=== PATIENT | male | born 1970 | race Two or more races ===

== ENCOUNTER 2020-03-05 19:53 | Inpatient (IN) | payer MEDICAID ==
[~2020-03-05] VITALS: Ht 175.3 cm; Wt 99.8 kg
[2020-03-05 20:00] VITALS: BP 124/73
[2020-03-05] MEDS ORDERED: Azithromycin 500 MG in NS 275 ML IVPB ONE (20:30)
[2020-03-05] MEDS ORDERED: Acetaminophen 500mg (ES) tab ORAL ONE (20:30)
[2020-03-05] MEDS ORDERED: cefTRIAXone 1 GM in NS 55 ML IV ONE (20:30)
[2020-03-05] MEDS ORDERED: dexAMETHasone 10mg/ml Inj IV ONE (20:30)
--- NOTE | 2020-03-05 20:36 | Emergency Room Report ---
History of Present Illness General Chief Complaint: Upper Respiratory Illness Source: Patient, EMS Present Illness HPI Patient presents via EMS. He has been sick for 8 days. Shortness of breath is gotten worse over the last 24-48 hrs. He also feels weakness and body pain. He denies any vomiting or diarrhea. He has had intermittent fevers that he has taken [id number]-[id number] medication. He has difficulty rating body pain at this time but he does report chest pain and muscle aches. Patient states has not eaten for 3 days. Initial oxygen saturation was 86% on room air. On 3 L he is satting at 94% at this time. He still feels short of breath and is coughing. Patient has a history of diabetes and hypertension but has not been taking medication for over a year. No chills, sore throat, chest pain, palpitations, nausea, dysuria, abdominal pain, rashes, depression, anxiety, visual changes, dizziness, headache. 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 Reviewed Nursing Documentation: PMH: Agreed; PSxH: Agreed Nursing Documentation-PMH Hx Hypertension: Yes Hx Diabetes: Yes Review of Systems All Other Systems: negative except mentioned in HPI Physical Exam Vital Signs Date Time Temp Pulse Resp B/P (MAP) Pulse Ox O2 Delivery O2 Flow Rate FiO2 03/05/20 19:52 98.8 103 22 139/73 (95) 94 Nasal Cannula 4.0 Sp02 EP Interpretation: reviewed, abnormal - Interpreted as low by me General Appearance: mild distress Head: normocephalic Eyes: bilateral eye normal inspection, bilateral eye PERRL, bilateral eye EOMI ENT: normal pharynx, moist mucus membranes, other - Wearing a mask Neck: supple Respiratory: respiratory distress - Mild, crackles, rales Cardiovascular #1: no edema, tachycardia Cardiovascular #2: 2+ radial (R) Gastrointestinal: non tender, soft, overweight Genitourinary: no CVA tenderness Musculoskeletal: no calf tenderness Neurologic: alert, oriented x3, grossly normal Psychiatric: mood/affect normal Skin: no rash, warm/dry Medical Decision Making Diagnostic Impression: Primary Impression: Pneumonia due to COVID-19 virus Additional Impressions: Hyperglycemia Hypoxia ER Course Patient presents with hypoxia and cough. Differential includes COVID-19 pneumonia, pulmonary embolus, acute myocardial infarction, other types of pneumonia most others. Patient evaluated EKG, chest x-ray and labs. Rapid Covid test is sent. Patient is treated with IV hydration, Tylenol, dexamethasone, azithromycin and Rocephin. EKG sinus rhythm rate of 98. No injury. Chest x-ray with bilateral infiltrates . Labs with low white count normal hematocrit. CMP remarkable for glucose of 234. Elevated inflammatory markers. Patient still tachypneic but improved on oxygen. Patient needing admission to the hospital for continued oxygen and treatment. D-dimer minimally elevated. Lovenox ordered however the patient was already on the floor. Laboratory Tests Test 03/05/20 19:45 03/05/20 21:15 White Blood Count 5.1 K/UL (4.8-10.8) Red Blood Count 5.19 M/UL (4.70-6.10) Hemoglobin 15.2 G/DL (14.2-18.0) Hematocrit 42.8 % (42.0-52.0) Mean Corpuscular Volume 82 FL (80-99) Mean Corpuscular Hemoglobin 29.3 PG (27.0-31.0) Mean Corpuscular Hemoglobin Concent 35.5 G/DL (32.0-36.0) Red Cell Distribution Width 12.6 % (11.6-14.8) Platelet Count 266 K/UL (150-450) Mean Platelet Volume 7.7 FL (6.5-10.1) Neutrophils (%) (Auto) 66.6 % (45.0-75.0) Lymphocytes (%) (Auto) 28.1 % (20.0-45.0) Monocytes (%) (Auto) 4.9 % (1.0-10.0) Eosinophils (%) (Auto) 0.0 % (0.0-3.0) Basophils (%) (Auto) 0.4 % (0.0-2.0) Prothrombin Time 11.7 SEC (9.30-11.50) H Prothrombin Time INR 1.1 (0.9-1.1) Activated Partial Thromboplast Time 34 SEC (23-33) H D-Dimer 0.86 mg/L FEU (0.00-0.49) H Sodium Level 132 MMOL/L (136-145) L Potassium Level 4.3 MMOL/L (3.5-5.1) Chloride Level 97 MMOL/L (98-107) L Carbon Dioxide Level 29 MMOL/L (21-32) Anion Gap 6 mmol/L (5-15) Blood Urea Nitrogen 9 mg/dL (7-18) Creatinine 0.7 MG/DL (0.55-1.30) Estimated Glomerular Filtration Rate > 60 mL/min (>60) Glucose Level 234 MG/DL (74-106) H Lactic Acid Level 1.70 mmol/L (0.4-2.0) Calcium Level 8.4 MG/DL (8.5-10.1) L Ferritin 961 NG/ML (8-388) H Total Bilirubin 0.6 MG/DL (0.2-1.0) Aspartate Amino Transferase (AST) 30 U/L (15-37) Alanine Aminotransferase (ALT) 30 U/L (12-78) Alkaline Phosphatase 109 U/L (46-116) Lactate Dehydrogenase 365 U/L (81-234) H Total Creatine Kinase 39 U/L (26-308) Troponin I 0.000 ng/mL (0.000-0.056) C-Reactive Protein, Quantitative 17.3 mg/dL (0.00-0.90) H Pro-B-Type Natriuretic Peptide 135 pg/mL (0-125) H Total Protein 7.5 G/DL (6.4-8.2) Albumin 2.5 G/DL (3.4-5.0) L Globulin 5.0 g/dL Albumin/Globulin Ratio 0.5 (1.0-2.7) L Lipase 103 U/L (73-393) Urine Color Pale yellow Urine Appearance Clear Urine pH 7 (4.5-8.0) Urine Specific [place] 1.010 (1.005-1.035) Urine Protein 3+ (NEGATIVE) H Urine Glucose (UA) 4+ (NEGATIVE) H Urine Ketones 4+ (NEGATIVE) H Urine Blood Negative (NEGATIVE) Urine Nitrite Negative (NEGATIVE) Urine Bilirubin Negative (NEGATIVE) Urine Urobilinogen 1 MG/DL (0.0-1.0) H Urine Leukocyte Esterase Negative (NEGATIVE) Urine RBC 0-2 /HPF (0 - 0) H Urine WBC 0-2 /HPF (0 - 0) Urine Squamous Epithelial Cells Occasional /LPF Urine Bacteria Few /HPF (NONE) Microbiology Date/Time Source Procedure Growth Status 03/05/20 20:05 Nasopharynx SARS-CoV-2 RdRp Gene Assay - Final Complete EKG Diagnostic Results Rate: tachycardiac Rhythm: NSR ST Segments: no acute changes Rhythm Strip Diag. Results Rhythm: no PVC's, no ectopy, other - Sinus tachycardia Chest X-Ray Diagnostic Results Chest X-Ray Diagnostic Results : Chest X-Ray Ordered: Yes # of Views/Limited/Complete: 1 View Indication: Other EP Interpretation: Yes Interpretation: no effusion, no pneumothorax, other - Bilateral infiltrates Impression: Other Electronically Signed by: Electronically signed by Pelon Watt MD Last Vital Signs Date Time Temp Pulse Resp B/P (MAP) Pulse Ox O2 Delivery O2 Flow Rate FiO2 03/06/20 00:00 97.9 90 20 120/82 (95) 93 03/05/20 23:20 Nasal Cannula 3.0 Status: improved Disposition: ADMITTED INPATIENT Condition: Serious Scripts No Active Prescriptions or Reported Meds Pelon Watt MD Mar 05, 2020 20:36
--- NOTE | 2020-03-05 20:44 | Diagnostic Imaging Report ---
EXAM: XR Chest, 1 View CLINICAL HISTORY: DYSPNEA TECHNIQUE: Frontal view of the chest. COMPARISON: No relevant prior studies available. FINDINGS: Lungs: Moderate amount of patchy airspace opacities in both lungs with lower lung zone predominance. Pleural space: Unremarkable. No pneumothorax. Heart: Unremarkable. No cardiomegaly. Mediastinum: Unremarkable. Bones/joints: Unremarkable. IMPRESSION: Bilateral Pneumonia.
[2020-03-05 20:47] LABS: BASOPHILS % (AUTO) 0.4 % (0.0-2.0); HEMATOCRIT 42.8 % (42.0-52.0); HEMOGLOBIN 15.2 G/DL (14.2-18.0); LYMPHOCYTES % (AUTO) 28.1 % (20.0-45.0); MEAN CORPUSCULAR VOLUME 82 FL (80-99); MONOCYTES % (AUTO) 4.9 % (1.0-10.0); NEUTROPHILS % (AUTO) 66.6 % (45.0-75.0); PLATELET COUNT 266 K/UL (150-450); RED BLOOD COUNT 5.19 M/UL (4.70-6.10); RED CELL DISTRIBUTION WIDTH 12.6 % (11.6-14.8); WHITE BLOOD COUNT 5.1 K/UL (4.8-10.8)
[2020-03-05 20:52] LABS: ANION GAP 6 mmol/L (5-15); BLOOD UREA NITROGEN 9 mg/dL (7-18); CALCIUM 8.4 MG/DL (8.5-10.1); CARBON DIOXIDE 29 MMOL/L (21-32); CHLORIDE 97 MMOL/L (98-107); CREATININE 0.7 MG/DL (0.55-1.30); POTASSIUM 4.3 MMOL/L (3.5-5.1); SODIUM 132 MMOL/L (136-145)
[2020-03-05 21:08] LABS: INR 1.1 (0.9-1.1)
[2020-03-05 21:09] LABS: ALANINE AMINOTRANSFERASE 30 U/L (12-78); ALBUMIN 2.5 G/DL (3.4-5.0); ALBUMIN/GLOBULIN RATIO 0.5 (1.0-2.7); ALKALINE PHOSPHATASE 109 U/L (46-116); ASPARTATE AMINO TRANSFERASE 30 U/L (15-37); BILIRUBIN,TOTAL 0.6 MG/DL (0.2-1.0); CREATINE KINASE 39 U/L (26-308); FERRITIN 961 NG/ML (8-388); LACTATE DEHYDROGENASE 365 U/L (81-234)
[2020-03-05 21:34] LABS: APPEARANCE,URINE CLEAR; BILIRUBIN, URINE NEGATIVE (NEGATIVE); COLOR,URINE PALE YELLOW; GLUCOSE, URINE (UA) 4+ (NEGATIVE); KETONES,URINE 4+ (NEGATIVE); LEUKOCYTE ESTERASE ,URINE NEGATIVE (NEGATIVE); NITRITE,URINE NEGATIVE (NEGATIVE); PH,URINE 7 (4.5-8.0); PROTEIN,URINE 3+ (NEGATIVE); UROBILINOGEN,URINE 1 MG/DL (0.0-1.0)
[2020-03-05 21:47] VITALS: BP 125/70
[2020-03-05] MEDS ORDERED: guaiFENesin w/Codeine 5ml Liq ud ORAL PRN (22:45)
[2020-03-05] MEDS ORDERED: Enoxaparin 100mg Inj SUBQ STA (23:31)
[2020-03-06] VITALS: BP 120/82
[2020-03-06] MEDS ORDERED: Acetaminophen 500mg (ES) tab ORAL PRN
[2020-03-06] MEDS ORDERED: guaiFENesin /DM 10ml syrup ORAL PRN
[2020-03-06 04:00] VITALS: BP 116/79
[2020-03-06 08:00] VITALS: BP 115/77
[2020-03-06 09:02] LABS: BASOPHILS % (AUTO) 0.1 % (0.0-2.0); HEMATOCRIT 39.9 % (42.0-52.0); HEMOGLOBIN 13.9 G/DL (14.2-18.0); LYMPHOCYTES % (AUTO) 20.3 % (20.0-45.0); MEAN CORPUSCULAR VOLUME 85 FL (80-99); MONOCYTES % (AUTO) 4.2 % (1.0-10.0); NEUTROPHILS % (AUTO) 75.5 % (45.0-75.0); PLATELET COUNT 280 K/UL (150-450); RED BLOOD COUNT 4.67 M/UL (4.70-6.10); WHITE BLOOD COUNT 3.5 K/UL (4.8-10.8)
[2020-03-06 09:17] LABS: ALANINE AMINOTRANSFERASE 28 U/L (12-78); ALBUMIN 2.2 G/DL (3.4-5.0); ALBUMIN/GLOBULIN RATIO 0.5 (1.0-2.7); ALKALINE PHOSPHATASE 99 U/L (46-116); ANION GAP 10 mmol/L (5-15); ASPARTATE AMINO TRANSFERASE 30 U/L (15-37); BILIRUBIN,TOTAL 0.6 MG/DL (0.2-1.0); BLOOD UREA NITROGEN 14 mg/dL (7-18); CALCIUM 8.1 MG/DL (8.5-10.1); CARBON DIOXIDE 24 MMOL/L (21-32); CHLORIDE 100 MMOL/L (98-107); CREATININE 0.6 MG/DL (0.55-1.30); POTASSIUM 4.5 MMOL/L (3.5-5.1); SODIUM 134 MMOL/L (136-145)
[2020-03-06 12:00] VITALS: BP 117/76
[2020-03-06] MEDS ORDERED: Enoxaparin 100mg Inj SUBQ SCH (14:30)
[2020-03-06] MEDS ORDERED: Varibar Honey 250ml MC PRN (14:45)
[2020-03-06] MEDS ORDERED: Varibar Thin Liquid powder 148gm MC PRN (14:45)
[2020-03-06] MEDS ORDERED: Varibar Pudding 230ml MC PRN (14:45)
[2020-03-06] MEDS ORDERED: Varibar Nectar 240ml MC PRN (14:45)
[2020-03-06 16:00] VITALS: BP 111/74
[2020-03-06] MEDS: NovoLOG Insulin Flexpen SUBQ SCH ×2 (17:11→22:22)
--- NOTE | 2020-03-06 19:00 | Consultation ---
DATE OF CONSULTATION: 03/06/2020 PULMONARY CONSULTATION HISTORY OF PRESENT ILLNESS: This is a 49-year-old male who presents to the emergency room yesterday with complaints of shortness of breath. He has been sick for approximately 8 days, but has worsened over the last 48 hours. He reported myalgias and body aches. He also reported fevers. The patient reports he has been anorexic for the last several days. The patient was seen and evaluated. He was hypoxic and started on nasal oxygen. He underwent rapid testing for COVID-19. Results were positive. He also underwent imaging studies, which showed patchy bilateral infiltrates. PAST HISTORY: The patient is an hypertensive and is also known to be diabetic. SOCIAL HISTORY: Denies alcohol, tobacco usage. He lives at home with family. 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 No substance use reported. ALLERGIES: None reported. SURGERIES: None. REVIEW OF SYSTEMS: At this time denies any headaches, hematemesis, melena, hematochezia, or weight loss. PHYSICAL EXAMINATION: GENERAL: A 49-year-old male. HEENT: Unremarkable. LUNGS: Clear breath sounds bilaterally. HEART: Normal heart sounds. ABDOMEN: Soft. EXTREMITIES: There is no edema. NEUROLOGIC: Nonfocal. VITAL SIGNS: Blood pressure 116/70, heart rate 74, respirations 18, O2 sat 93% on 2 L oxygen. LABORATORY TESTING: Shows hemoglobin of 13.9. Chemistries are normal. Coags, D-dimer of 0.86. Urinalysis negative. Infectious disease/microbiology testing discussed above. X-ray chest discussed above. IMPRESSION: 1. COVID-19 pneumonia. 2. Diabetes mellitus. 3. Hypertension. 4. Hypoxemia. DISCUSSION: Admit to the hospital. The patient will be started on Decadron. Defer the use of remdesivir to ID specialist. Continue glucose monitoring. We will initiate Lovenox. We will follow carefully. Irineo Sharp M.D. DR: CARSON JOB#: [id number] CC:
--- NOTE | 2020-03-06 19:45 | Consultation ---
DATE OF CONSULTATION: 03/06/2020 INFECTIOUS DISEASE CONSULTATION CONSULTING PHYSICIAN: Kev Bailon M.D. PRIMARY ATTENDING PHYSICIAN: Jagjit Arauz M.D. REASON FOR CONSULT: COVID-19 disease. HISTORY OF PRESENT ILLNESS: This 49-year-old male, admitted yesterday from home complaining of weakness for 8 days, worse in the last 24 to 48 hours, decrease in oral intake in the last 3 days, was found to have decrease in O2 saturation, was found to have COVID-19 positive. PAST MEDICAL HISTORY: Diabetes and hypertension, but the patient was noncompliant with medication for 1 year. ALLERGIES: No known drug allergies. MEDICATIONS: Getting dexamethasone, insulin, Robitussin DM syrup, Tylenol. Got a dose of ceftriaxone and azithromycin in the ER. SOCIAL HISTORY: . 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 Denies alcohol, drug abuse, or smoking. REVIEW OF SYSTEMS: No fever. May have very slight coughing. PHYSICAL EXAMINATION: VITAL SIGNS: Temperature 98.1, pulse 81, blood pressure is 117/76. GENERAL APPEARANCE: Seems overweight. HEAD AND NECK: [place] conjunctiva. HEART: Normal rate. LUNGS: Clear. ABDOMEN: Soft, nontender. EXTREMITIES: He has no edema. NEUROLOGIC: He is awake, alert, oriented x3. LABORATORY AND DIAGNOSTIC DATA: Sodium 134, potassium 4.5, chloride 100, bicarb 24, BUN 14, creatinine 0.8, glucose elevated. Lactic acid was within normal limit. Albumin is 2.2. WBC 3.5, hemoglobin 13.9, hematocrit 39.9, platelets 180. Chest x-ray showed bilateral pneumonia. COVID test was positive. IMPRESSION: COVID-19 pneumonia. Seems the patient is sick for a while. Has borderline hypoxemia. Oxygen saturation in room air is 90 to 91%. He has diabetes mellitus with hyperglycemia and history of hypertension. RECOMMENDATION: Continue with dexamethasone. We will follow up the clinical course. At the end of my exam, I thank, Dr. Arauz, for involving me in the care of this patient. Kev Bailon M.D. DR: IDALIA JOB#: [id number] CC: SANTO
[2020-03-06 20:00] VITALS: BP 111/74
--- NOTE | 2020-03-06 21:38 | Cardiac Electrophysiology PN ---
Subjective Subjective [id number] Objective Last 24 Hour Vital Signs Date Time Temp Pulse Resp B/P (MAP) Pulse Ox O2 Delivery O2 Flow Rate FiO2 03/06/20 16:00 97.8 79 20 111/74 (86) 94 03/06/20 12:00 98.1 82 20 117/76 (90) 98 03/06/20 09:00 Nasal Cannula 2.0 03/06/20 08:00 97.4 73 20 115/77 (90) 98 03/06/20 04:00 97.4 73 20 116/79 (91) 94 03/06/20 00:52 Nasal Cannula 3.0 03/06/20 00:00 97.9 90 20 120/82 (95) 93 03/05/20 23:20 98.7 92 30 130/83 98 Nasal Cannula 3.0 03/05/20 21:47 97.6 92 26 125/70 99 Nasal Cannula 3.0 Intake and Output 03/05/20 03/06/20 19:00 07:00 Intake Total 1600 ml Balance 1600 ml Intake IV Total 1600 ml # Voids 1 Laboratory Tests Test 03/06/20 04:00 White Blood Count 3.5 K/UL (4.8-10.8) L Red Blood Count 4.67 M/UL (4.70-6.10) L Hemoglobin 13.9 G/DL (14.2-18.0) L Hematocrit 39.9 % (42.0-52.0) L Mean Corpuscular Volume 85 FL (80-99) Mean Corpuscular Hemoglobin 29.8 PG (27.0-31.0) Mean Corpuscular Hemoglobin Concent 34.9 G/DL (32.0-36.0) Red Cell Distribution Width 12.0 % (11.6-14.8) Platelet Count 280 K/UL (150-450) Mean Platelet Volume 6.7 FL (6.5-10.1) Neutrophils (%) (Auto) 75.5 % (45.0-75.0) H Lymphocytes (%) (Auto) 20.3 % (20.0-45.0) Monocytes (%) (Auto) 4.2 % (1.0-10.0) Eosinophils (%) (Auto) 0.0 % (0.0-3.0) Basophils (%) (Auto) 0.1 % (0.0-2.0) Sodium Level 134 MMOL/L (136-145) L Potassium Level 4.5 MMOL/L (3.5-5.1) Chloride Level 100 MMOL/L (98-107) Carbon Dioxide Level 24 MMOL/L (21-32) Anion Gap 10 mmol/L (5-15) Blood Urea Nitrogen 14 mg/dL (7-18) Creatinine 0.6 MG/DL (0.55-1.30) Estimat Glomerular Filtration Rate > 60 mL/min (>60) Glucose Level 271 MG/DL (74-106) H Calcium Level 8.1 MG/DL (8.5-10.1) L Total Bilirubin 0.6 MG/DL (0.2-1.0) Aspartate Amino Transf (AST/SGOT) 30 U/L (15-37) Alanine Aminotransferase (ALT/SGPT) 28 U/L (12-78) Alkaline Phosphatase 99 U/L (46-116) Total Protein 6.9 G/DL (6.4-8.2) Albumin 2.2 G/DL (3.4-5.0) L Globulin 4.7 g/dL Albumin/Globulin Ratio 0.5 (1.0-2.7) L Microbiology Date/Time Source Procedure Growth Status 03/05/20 20:05 Nasopharynx SARS-CoV-2 RdRp Gene Assay - Final Complete Parish Devlin MD Mar 06, 2020 21:38
--- NOTE | 2020-03-07 | Consultation ---
DATE OF CONSULTATION: 03/06/2020 CARDIOLOGY CONSULTATION REFERRING PHYSICIAN: Jagjit Arauz MD REASON FOR CONSULTATION: Shortness of breath and tachycardia. HISTORY OF PRESENT ILLNESS: The patient is a 49-year-old gentleman who was brought to the emergency room for increasing shortness of breath. This got worse in the last 24 to 48 hours and started about 8 days ago. The patient is also feeling weaker with generalized body ache. Also has had intermittent fever [id number]-[id number] medication. The patient apparently has not eating for 3 days. Oxygen saturation was 86% on room air, on 3 liters improved to 94%. The patient also has a history of hypertension, diabetes, but has not been taking medication for over a year. The patient was noted to be COVID positive and admitted and a cardiology consultation was obtained for further evaluation. REVIEW OF SYSTEMS: Negative other than what was mentioned in history of present illness. PAST MEDICAL HISTORY: As mentioned above. FAMILY HISTORY: Noncontributory. SOCIAL HISTORY: He denies smoking or drink alcohol. PHYSICAL EXAMINATION: VITAL SIGNS: Blood pressure 111/74, pulse 79, respirations 18, temperature 97.8. HEAD AND NECK: No JVD. LUNGS: Coarse rhonchi. CARDIOVASCULAR: Regular S1 and S2 with no gallop or murmur. ABDOMEN: Soft. EXTREMITIES: No pitting edema. LABORATORY DATA: Labs showed white count of 3.5, hemoglobin of 14, hematocrit of 40, and platelet count is 280. Sodium 134, potassium 4.5, BUN of 14, creatinine 0.6, and glucose of 271. Troponin is negative. ASSESSMENT AND PLAN: 1. Shortness of breath. First troponin is negative. We will repeat the troponin and get EKG and echocardiogram for further evaluation. This is likely due to the patient's COVID pneumonia. 2. COVID-positive pneumonia. Further evaluation by Pulmonary and ID. Add dexamethasone. 3. Diabetes, on insulin. 4. History of hypertension. We will watch the patient off antihypertensive agents. Blood pressure is currently stable. Thank you very much for allowing me to participate in the care of this patient. Please do not hesitate to contact me for any questions regarding my evaluation. Parish Devlin M.D. DR: FERNANDO JOB#: [id number] CC:
--- NOTE | 2020-03-07 02:00 | History and Physical Report ---
DATE OF ADMISSION: 03/05/2020 HISTORY OF PRESENT ILLNESS: Patient is diabetic and comes in because of shortness of breath and coughing. Feels weak and has body aches. Denies nausea, vomiting, or diarrhea. Has fever, chills, myalgias. Patient has also poor appetite. Patient initially was hypoxic and was admitted for COVID positive pneumonia and feels also very weak. Patient is having abdominal pain. PAST MEDICAL HISTORY: Hypertension, history of diabetes. PAST SURGICAL HISTORY: None. ALLERGIES: No known allergies. FAMILY HISTORY: Does have history of hypertension, diabetes. SOCIAL HISTORY: Denies history of smoking, alcohol, or illicit drugs. REVIEW OF SYSTEMS: HEENT: Denies headaches. RESPIRATORY: Reports shortness of breath and cough. CARDIOVASCULAR: Denies chest pain. GASTROINTESTINAL: Denies nausea, vomiting, or diarrhea. EXTREMITIES: Denies pain. CENTRAL NERVOUS SYSTEM: Feels weak. MEDICATIONS: None. PHYSICAL EXAMINATION: VITAL SIGNS: Temperature is 97.4, pulse 73, blood pressure 116/79. HEENT: PERRLA. NECK: Supple. No lymphadenopathy. CHEST: Bibasilar rhonchi. CARDIOVASCULAR: Regular rate and rhythm. No murmurs or extra sounds. GASTROINTESTINAL: Soft, nontender, nondistended. No organomegaly. EXTREMITIES: No edema. Reflexes are equal in both sides. Moves all four extremities. NEUROLOGIC: Generalized weakness. LABORATORY DATA: WBC of 5.1, hemoglobin 15.2, platelets 266. Sodium 133, potassium 4.3, BUN 9, creatinine 0.7, glucose of 234. ASSESSMENT AND PLAN: COVID positive pneumonia, hypoxia, NIDDM. I have asked Dr. Irineo Sharp, Dr. Kev Bailon, Dr. Devlin, Dr. Orr, and Dr. Pavon to see patient for the management of diabetes as well as for the management of COVID pneumonia as well as to rule out any cardiomyopathy associated with COVID pneumonia as well as for abdominal pain. Dr. Orr is consulted for patient's abdominal pain. Jagjit Arauz M.D. DR: KALINA JOB#: [id number] CC:
[2020-03-07 04:00] VITALS: BP 114/80
[2020-03-07] MEDS: NovoLOG Insulin Flexpen SUBQ SCH ×4 (05:54→20:55)
[2020-03-07 08:00] VITALS: BP 108/69
[2020-03-07] MEDS: metFORMIN 500mg tab ORAL SCH ×2 (09:12→17:04)
[2020-03-07] MEDS: dexAMETHasone 10mg/ml Inj IV SCH (09:12)
[2020-03-07] MEDS: Enoxaparin 100mg Inj SUBQ SCH ×2 (09:14→20:38)
--- NOTE | 2020-03-07 10:02 | Pulmonology Progress Note ---
Subjective Allergies: Coded Allergies: No Known Allergies (Unverified , 03/05/20) Objective Last 24 Hour Vital Signs Date Time Temp Pulse Resp B/P (MAP) Pulse Ox O2 Delivery O2 Flow Rate FiO2 03/07/20 08:00 97.2 70 20 108/69 (82) 90 03/07/20 04:00 97.4 77 19 114/80 (91) 92 03/06/20 21:00 Nasal Cannula 2.0 03/06/20 20:00 97.1 72 19 111/74 (86) 92 03/06/20 16:00 97.8 79 20 111/74 (86) 94 03/06/20 12:00 98.1 82 20 117/76 (90) 98 Intake and Output 03/06/20 03/07/20 19:00 07:00 Output Total 1000 ml 1000 ml Balance -1000 ml -1000 ml Output Urine Total 1000 ml 1000 ml Respiratory: decreased breath sounds Cardiovascular: normal rate Microbiology Date/Time Source Procedure Growth Status 03/05/20 20:05 Nasopharynx SARS-CoV-2 RdRp Gene Assay - Final Complete 03/05/20 19:55 Blood Blood Culture - Preliminary NO GROWTH AFTER 24 HOURS Resulted 03/05/20 19:45 Blood Blood Culture - Preliminary NO GROWTH AFTER 24 HOURS Resulted Laboratory Tests 03/06/20 17:06: POC Whole Blood Glucose 252H 03/06/20 21:55: POC Whole Blood Glucose 266H 03/07/20 05:52: POC Whole Blood Glucose [Pending] Current Medications Medications (Trade) Dose Ordered Sig/Emi Route PRN Reason Start Time Stop Time Status Last Admin Dose Admin Acetaminophen (Tylenol) 500 mg Q6HR PRN ORAL For Pain 03/06/20 00:00 04/05/20 00:00 Barium Sulfate (Varibar Honey) 250 ml NOW PRN MC RAD 03/06/20 14:45 03/09/20 14:39 Barium Sulfate (Varibar Bee [place]) 240 ml NOW PRN MC RAD 03/06/20 14:45 03/09/20 14:39 Barium Sulfate (Varibar Pudding) 230 ml NOW PRN MC RAD 03/06/20 14:45 03/09/20 14:39 Barium Sulfate (Varibar Thin Liquid powder) 148 gm NOW PRN MC RAD 03/06/20 14:45 03/09/20 14:39 Dexamethasone Sodium Phosphate (Decadron 10mg/ ml Inj) 6 mg DAILY IV 03/07/20 09:00 06/05/20 08:59 03/07/20 09:12 Dextrose (Dextrose 50%) 25 ml Q30M PRN IV Hypoglycemia 03/06/20 12:43 06/04/20 12:42 Dextrose (Dextrose 50%) 50 ml Q30M PRN IV Hypoglycemia 03/06/20 12:43 06/04/20 12:42 Enoxaparin Sodium (Lovenox) 100 mg Q12HR SUBQ 03/07/20 09:00 06/05/20 08:59 03/07/20 09:14 Guaifenesin/ Dextromethorphan (Robitussin DM Syrup) 10 ml Q6HR PRN ORAL For Cough 03/06/20 00:00 06/04/20 00:00 Insulin Aspart (NovoLOG) BEFORE MEALS AND HS SUBQ 03/06/20 16:30 06/04/20 16:29 03/07/20 05:54 Metformin HCl (Glucophage) 1,000 mg BID ORAL 03/07/20 09:00 04/06/20 08:59 03/07/20 09:12 Pioglitazone HCl (Actos) 15 mg ACBREAKFAST ORAL 03/07/20 06:30 04/06/20 06:29 03/07/20 05:53 Sodium Chloride 1,000 ml @ 60 mls/hr [id number] IV 03/06/20 00:00 04/05/20 00:00 03/07/20 09:17 Assessment/Plan Assessment/Plan MPRESSION: 1. COVID-19 pneumonia. 2. Diabetes mellitus. 3. Hypertension. 4. Hypoxemia. DISCUSSION: The patient started on Decadron. Defer the use of remdesivir to ID specialist. Continue glucose monitoring. We will initiate Lovenox. O2 2L/ N/C We will follow carefully. Gautam Navarrete NP Mar 07, 2020 10:02
--- NOTE | 2020-03-07 11:27 | General Progress Note ---
Subjective ROS Limited/Unobtainable: No Allergies: Coded Allergies: No Known Allergies (Unverified , 03/05/20) Objective Last 24 Hour Vital Signs Date Time Temp Pulse Resp B/P (MAP) Pulse Ox O2 Delivery O2 Flow Rate FiO2 03/07/20 08:00 97.2 70 20 108/69 (82) 90 03/07/20 04:00 97.4 77 19 114/80 (91) 92 03/06/20 21:00 Nasal Cannula 2.0 03/06/20 20:00 97.1 72 19 111/74 (86) 92 03/06/20 16:00 97.8 79 20 111/74 (86) 94 03/06/20 12:00 98.1 82 20 117/76 (90) 98 Intake and Output 03/06/20 03/07/20 19:00 07:00 Output Total 1000 ml 1000 ml Balance -1000 ml -1000 ml Output Urine Total 1000 ml 1000 ml Laboratory Tests 03/06/20 17:06: POC Whole Blood Glucose 252H 03/06/20 21:55: POC Whole Blood Glucose 266H 03/07/20 05:52: POC Whole Blood Glucose [Pending] 03/07/20 09:30: Hemoglobin A1c 11.9H, Troponin I 0.008 Height (Feet): 5 Height (Inches): 9.00 Weight (Pounds): 220 General Appearance: no apparent distress EENT: normal ENT inspection Neck: supple Cardiovascular: normal rate Respiratory/Chest: decreased breath sounds Abdomen: normal bowel sounds, non tender, soft Extremities: non-tender Assessment/Plan Problem List: (1) Hypoxia ICD Codes: R09.02 - Hypoxemia SNOMED: 006859302 (2) Hyperglycemia ICD Codes: R73.9 - Hyperglycemia, unspecified; J12.89 - Other viral pneumonia SNOMED: 92797142 (3) Pneumonia due to COVID-19 virus ICD Codes: U07.1 - COVID-19; J12.89 - Other viral pneumonia SNOMED: 421261507352819066 (4) Diabetes mellitus ICD Codes: E11.9 - Type 2 diabetes mellitus without complications SNOMED: 33561306 (5) Abdominal pain ICD Codes: R10.9 - Unspecified abdominal pain SNOMED: 62084797 Assessment/Plan: covid care given above hold ppi add famotidine repeat labs Mariusz Mendez MD Mar 07, 2020 11:27
[2020-03-07 12:00] VITALS: BP 114/72
[2020-03-07 16:00] VITALS: BP 125/73
[2020-03-07 20:00] VITALS: BP 116/84
--- NOTE | 2020-03-07 22:19 | General Progress Note ---
Subjective ROS Limited/Unobtainable: Yes Allergies: Coded Allergies: No Known Allergies (Unverified , 03/05/20) Objective Last 24 Hour Vital Signs Date Time Temp Pulse Resp B/P (MAP) Pulse Ox O2 Delivery O2 Flow Rate FiO2 03/07/20 16:00 97.5 68 20 125/73 (90) 94 03/07/20 12:00 97.0 72 20 114/72 (86) 94 03/07/20 09:00 Nasal Cannula 4.0 03/07/20 08:00 97.2 70 20 108/69 (82) 90 03/07/20 04:00 97.4 77 19 114/80 (91) 92 Intake and Output 03/06/20 03/07/20 19:00 07:00 Output Total 1000 ml 1000 ml Balance -1000 ml -1000 ml Output Urine Total 1000 ml 1000 ml Laboratory Tests 03/07/20 05:52: POC Whole Blood Glucose [Pending] 03/07/20 09:30: Hemoglobin A1c 11.9H, Troponin I 0.008 03/07/20 11:37: POC Whole Blood Glucose [Pending] 03/07/20 16:25: POC Whole Blood Glucose 312H 03/07/20 20:46: POC Whole Blood Glucose 267H Height (Feet): 5 Height (Inches): 9.00 Weight (Pounds): 220 Assessment/Plan Problem List: (1) Hypoxia ICD Codes: R09.02 - Hypoxemia SNOMED: 248454353 (2) Hyperglycemia ICD Codes: R73.9 - Hyperglycemia, unspecified; J12.89 - Other viral pneumonia SNOMED: 16263110 (3) Pneumonia due to COVID-19 virus ICD Codes: U07.1 - COVID-19; J12.89 - Other viral pneumonia SNOMED: 098217331304286806 (4) Diabetes mellitus ICD Codes: E11.9 - Type 2 diabetes mellitus without complications SNOMED: 47299946 (5) Abdominal pain ICD Codes: R10.9 - Unspecified abdominal pain SNOMED: 14629538 Status: progressing Assessment/Plan: afebrile dm pna resp insuff labile sugar covid positive Jagjit Arauz MD Mar 07, 2020 22:19
[2020-03-08] VITALS: BP 122/87
[2020-03-08 04:00] VITALS: BP 124/83
[2020-03-08] MEDS: NovoLOG Insulin Flexpen SUBQ SCH ×4 (05:40→20:54)
[2020-03-08 08:00] VITALS: BP 126/80
[2020-03-08] MEDS: dexAMETHasone 10mg/ml Inj IV SCH (08:39)
[2020-03-08] MEDS: metFORMIN 500mg tab ORAL SCH ×2 (08:39→17:15)
[2020-03-08] MEDS: Enoxaparin 100mg Inj SUBQ SCH ×2 (08:40→20:55)
--- NOTE | 2020-03-08 09:17 | Pulmonology Progress Note ---
Subjective ROS Limited/Unobtainable: Yes Interval Events: none major reported per nursing Constitutional: Reports: no symptoms; Denies: fever, fatigue, drenching sweats HEENT: Repors: no symptoms Respiratory: Reports: dry cough Cardiovascular: Reports: no symptoms Gastrointestinal/Abdominal: Reports: no symptoms; Denies: diarrhea Allergies: Coded Allergies: No Known Allergies (Unverified , 03/05/20) Objective Last 24 Hour Vital Signs Date Time Temp Pulse Resp B/P (MAP) Pulse Ox O2 Delivery O2 Flow Rate FiO2 03/08/20 04:00 97.8 59 20 124/83 (97) 92 03/08/20 00:00 97.4 62 18 122/87 (99) 93 03/07/20 21:00 Nasal Cannula 3.0 03/07/20 20:00 97.7 74 18 116/84 (95) 92 03/07/20 16:00 97.5 68 20 125/73 (90) 94 03/07/20 12:00 97.0 72 20 114/72 (86) 94 Intake and Output 03/07/20 03/08/20 19:00 07:00 Intake Total 1540 ml 660 ml Output Total 2600 ml Balance 1540 ml -1940 ml Intake Oral 1000 ml IV Total 540 ml 660 ml Output Urine Total 2600 ml Objective 03/08 currently saturating at 92% on 3 L NC HEENT: normocephalic, atraumatic Respiratory: chest wall non-tender, decreased breath sounds Cardiovascular: normal rate Abdomen: soft, non tender Extremities: no edema Microbiology Date/Time Source Procedure Growth Status 03/05/20 20:05 Nasopharynx SARS-CoV-2 RdRp Gene Assay - Final Complete 03/05/20 19:55 Blood Blood Culture - Preliminary NO GROWTH AFTER 24 HOURS Resulted 03/05/20 19:45 Blood Blood Culture - Preliminary NO GROWTH AFTER 24 HOURS Resulted Laboratory Tests 03/07/20 09:30: Hemoglobin A1c 11.9H, Troponin I 0.008 03/07/20 11:37: POC Whole Blood Glucose [Pending] 03/07/20 16:25: POC Whole Blood Glucose 312H 03/07/20 20:46: POC Whole Blood Glucose 267H Current Medications Medications (Trade) Dose Ordered Sig/Emi Route PRN Reason Start Time Stop Time Status Last Admin Dose Admin Acetaminophen (Tylenol) 500 mg Q6HR PRN ORAL For Pain 03/06/20 00:00 04/05/20 00:00 Barium Sulfate (Varibar Honey) 250 ml NOW PRN RAD 03/06/20 14:45 03/09/20 14:39 Barium Sulfate (Varibar [place]) 240 ml NOW PRN RAD 03/06/20 14:45 03/09/20 14:39 Barium Sulfate (Varibar Pudding) 230 ml NOW PRN RAD 03/06/20 14:45 03/09/20 14:39 Barium Sulfate (Varibar Thin Liquid powder) 148 gm NOW PRN RAD 03/06/20 14:45 03/09/20 14:39 Dexamethasone Sodium Phosphate (Decadron 10mg/ ml Inj) 6 mg DAILY IV 03/07/20 09:00 06/05/20 08:59 03/08/20 08:39 Dextrose (Dextrose 50%) 25 ml Q30M PRN IV Hypoglycemia 03/06/20 12:43 06/04/20 12:42 Dextrose (Dextrose 50%) 50 ml Q30M PRN IV Hypoglycemia 03/06/20 12:43 06/04/20 12:42 Enoxaparin Sodium (Lovenox) 100 mg Q12HR SUBQ 03/07/20 09:00 06/05/20 08:59 03/08/20 08:40 Famotidine (Pepcid I.v.) 20 mg Q12HR IVP 03/07/20 21:00 04/06/20 20:59 03/08/20 08:39 Guaifenesin/ Dextromethorphan (Robitussin DM Syrup) 10 ml Q6HR PRN ORAL For Cough 03/06/20 00:00 06/04/20 00:00 Insulin Aspart (NovoLOG) BEFORE MEALS AND HS SUBQ 03/06/20 16:30 06/04/20 16:29 03/08/20 05:40 Metformin HCl (Glucophage) 1,000 mg BID ORAL 03/07/20 09:00 04/06/20 08:59 03/08/20 08:39 Pioglitazone HCl (Actos) 15 mg ACBREAKFAST ORAL 03/07/20 06:30 04/06/20 06:29 03/08/20 05:41 Sodium Chloride 1,000 ml @ 60 mls/hr [id number] IV 03/06/20 00:00 04/05/20 00:00 03/08/20 00:31 Assessment/Plan Assessment/Plan 1. COVID-19 pneumonia. - on Decadron - Defer the use of remdesivir to ID specialist. 2. Diabetes mellitus. - on metformin and pioglitazone - cont glucose monitoring 3. Hx of hypertension. 4. Hypoxemia. - currently saturating at 92% on 3L NC - keep saO2 >92% DVT ppx - on Lovenox We will follow carefully. The care for this patient was discussed with my supervising physician Time spent for this case was approximately 31 minutes Evangelista Barnes Mar 08, 2020 09:17
[2020-03-08 12:00] VITALS: BP 120/71
--- NOTE | 2020-03-08 12:40 | Infectious Diseases Prog Note ---
Assessment/Plan Assessment/Plan IMPRESSION: COVID-19 pneumonia. Has borderline hypoxemia. Oxygen saturation in room air is 95% Diabetes mellitus with hyperglycemia Hypertension. RECOMMENDATION: Continue with dexamethasone If remains stable can discontinue Dexamethasone Subjective ROS Limited/Unobtainable: Yes Constitutional: Reports: no symptoms Respiratory: Reports: no symptoms Gastrointestinal/Abdominal: Reports: no symptoms Genitourinary: Reports: no symptoms Allergies: Coded Allergies: No Known Allergies (Unverified , 03/05/20) Objective Last 24 Hour Vital Signs Date Time Temp Pulse Resp B/P (MAP) Pulse Ox O2 Delivery O2 Flow Rate FiO2 03/08/20 09:00 Nasal Cannula 3.0 03/08/20 08:00 97.3 63 20 126/80 (95) 94 03/08/20 04:00 97.8 59 20 124/83 (97) 92 03/08/20 00:00 97.4 62 18 122/87 (99) 93 03/07/20 21:00 Nasal Cannula 3.0 03/07/20 20:00 97.7 74 18 116/84 (95) 92 03/07/20 16:00 97.5 68 20 125/73 (90) 94 Height (Feet): 5 Height (Inches): 9.00 Weight (Pounds): 220 HEENT: mucous membranes moist Respiratory/Chest: other - oxygen by nasal cannula Cardiovascular: normal rate Abdomen: soft, non tender Extremities: no edema Neurologic/Psychiatric: alert, responsive Microbiology Date/Time Source Procedure Growth Status 03/05/20 20:05 Nasopharynx SARS-CoV-2 RdRp Gene Assay - Final Complete 03/05/20 19:55 Blood Blood Culture - Preliminary NO GROWTH AFTER 24 HOURS Resulted 03/05/20 19:45 Blood Blood Culture - Preliminary NO GROWTH AFTER 24 HOURS Resulted Laboratory Tests Test 03/07/20 16:25 03/07/20 20:46 03/08/20 05:25 POC Whole Blood Glucose 312 MG/DL (74-106) H 267 MG/DL (74-106) H Pending Current Medications Medications (Trade) Dose Ordered Sig/Emi Route PRN Reason Start Time Stop Time Status Last Admin Dose Admin Acetaminophen (Tylenol) 500 mg Q6HR PRN ORAL For Pain 03/06/20 00:00 04/05/20 00:00 Barium Sulfate (Varibar Honey) 250 ml NOW PRN MC RAD 03/06/20 14:45 03/09/20 14:39 Barium Sulfate (Varibar [place]) 240 ml NOW PRN RAD 03/06/20 14:45 03/09/20 14:39 Barium Sulfate (Varibar Pudding) 230 ml NOW PRN RAD 03/06/20 14:45 03/09/20 14:39 Barium Sulfate (Varibar Thin Liquid powder) 148 gm NOW PRN RAD 03/06/20 14:45 03/09/20 14:39 Dexamethasone Sodium Phosphate (Decadron 10mg/ ml Inj) 6 mg DAILY IV 03/07/20 09:00 06/05/20 08:59 03/08/20 08:39 Dextrose (Dextrose 50%) 25 ml Q30M PRN IV Hypoglycemia 03/06/20 12:43 06/04/20 12:42 Dextrose (Dextrose 50%) 50 ml Q30M PRN IV Hypoglycemia 03/06/20 12:43 06/04/20 12:42 Enoxaparin Sodium (Lovenox) 100 mg Q12HR SUBQ 03/07/20 09:00 06/05/20 08:59 03/08/20 08:40 Famotidine (Pepcid I.v.) 20 mg Q12HR IVP 03/07/20 21:00 04/06/20 20:59 03/08/20 08:39 Guaifenesin/ Dextromethorphan (Robitussin DM Syrup) 10 ml Q6HR PRN ORAL For Cough 03/06/20 00:00 06/04/20 00:00 Insulin Aspart (NovoLOG) BEFORE MEALS AND HS SUBQ 03/06/20 16:30 06/04/20 16:29 03/08/20 11:49 Metformin HCl (Glucophage) 1,000 mg BID ORAL 03/07/20 09:00 04/06/20 08:59 03/08/20 08:39 Pioglitazone HCl (Actos) 15 mg ACBREAKFAST ORAL 03/07/20 06:30 04/06/20 06:29 03/08/20 05:41 Sodium Chloride 1,000 ml @ 60 mls/hr [id number] IV 03/06/20 00:00 04/05/20 00:00 03/08/20 00:31 Kev Bailon MD Mar 08, 2020 12:40
--- NOTE | 2020-03-08 13:37 | Cardiac Electrophysiology PN ---
Assessment/Plan Assessment/Plan 1. Shortness of breath. Ruled out for [place]. Repeat echo pending. This is likely due to the patient's COVID pneumonia. 2. COVID-positive pneumonia. Fu by Pulmonary and ID. On dexamethasone. 3. Diabetes, on insulin. 4. History of hypertension. Blood pressure is currently stable. Subjective Subjective On 3 liter Nasal Cannula in NAD Objective Last 24 Hour Vital Signs Date Time Temp Pulse Resp B/P (MAP) Pulse Ox O2 Delivery O2 Flow Rate FiO2 03/08/20 12:00 97.6 66 20 120/71 (87) 95 03/08/20 09:00 Nasal Cannula 3.0 03/08/20 08:00 97.3 63 20 126/80 (95) 94 03/08/20 04:00 97.8 59 20 124/83 (97) 92 03/08/20 00:00 97.4 62 18 122/87 (99) 93 03/07/20 21:00 Nasal Cannula 3.0 03/07/20 20:00 97.7 74 18 116/84 (95) 92 03/07/20 16:00 97.5 68 20 125/73 (90) 94 Intake and Output 03/07/20 03/08/20 19:00 07:00 Intake Total 1540 ml 660 ml Output Total 2600 ml Balance 1540 ml -1940 ml Intake Oral 1000 ml IV Total 540 ml 660 ml Output Urine Total 2600 ml Laboratory Tests Test 03/07/20 16:25 03/07/20 20:46 03/08/20 05:25 POC Whole Blood Glucose 312 MG/DL (74-106) H 267 MG/DL (74-106) H Pending Microbiology Date/Time Source Procedure Growth Status 03/05/20 20:05 Nasopharynx SARS-CoV-2 RdRp Gene Assay - Final Complete 03/05/20 19:55 Blood Blood Culture - Preliminary NO GROWTH AFTER 24 HOURS Resulted 03/05/20 19:45 Blood Blood Culture - Preliminary NO GROWTH AFTER 24 HOURS Resulted Objective HEAD AND NECK: No JVD. LUNGS: Coarse rhonchi. CARDIOVASCULAR: Regular S1 and S2 with no gallop or murmur. ABDOMEN: Soft. EXTREMITIES: No pitting edema. Parish Devlin MD Mar 08, 2020 13:37
--- NOTE | 2020-03-08 15:15 | Consultation ---
DATE OF CONSULTATION: 03/06/2020 ENDOCRINOLOGY CONSULTATION CONSULTING PHYSICIAN: Wai Michelle MD REFERRING PHYSICIAN: Jagjit Arauz MD REASON FOR CONSULTATION: I was asked to see this 49-year-old male by Dr. Jagjit Arauz in endocrinology consultation for management of type 2 diabetes mellitus out of control. Patient is positive for COVID pneumonia hypoxemia. The patient was started on dexamethasone 6 mg IV push daily glucose level. He was previously on metformin 1000 mg p.o. b.i.d., but denies polyuria or polydipsia. FAMILY HISTORY: Unremarkable. PERSONAL HISTORY: Negative for tobacco use. REVIEW OF SYSTEMS: A 14-point review unremarkable. PHYSICAL EXAMINATION: GENERAL: Patient is in no acute distress. VITAL SIGNS: Blood pressure is 162/79, pulse 107, respirations 18, and temperature 98.0. HEAD AND NECK: Unremarkable. LUNGS: . HEART: Distant. ABDOMEN: Obese. Bowel sounds present. EXTREMITIES: No edema. NEUROLOGICAL: Cranial nerves II through XII are intact. Toes are downgoing to plantar stimulation. LABORATORY DATA: Glucose 266 mg%. ASSESSMENT: 1. Diabetes mellitus, type 2, out of control. 2. Acute COVID pneumonia. Patient metformin 1000 mg p.o. b.i.d. . Hemoglobin A1c will be drawn in the a.m. . Wai Michelle M.D. DR: ZENIA JOB#: [id number] CC:
[2020-03-08 16:00] VITALS: BP 119/73
[2020-03-08 20:00] VITALS: BP 128/81
--- NOTE | 2020-03-08 21:31 | General Progress Note ---
Subjective ROS Limited/Unobtainable: Yes Allergies: Coded Allergies: No Known Allergies (Unverified , 03/05/20) Objective Last 24 Hour Vital Signs Date Time Temp Pulse Resp B/P (MAP) Pulse Ox O2 Delivery O2 Flow Rate FiO2 03/08/20 16:00 98.1 70 20 119/73 (88) 95 03/08/20 12:00 97.6 66 20 120/71 (87) 95 03/08/20 09:00 Nasal Cannula 3.0 03/08/20 08:00 97.3 63 20 126/80 (95) 94 03/08/20 04:00 97.8 59 20 124/83 (97) 92 03/08/20 00:00 97.4 62 18 122/87 (99) 93 Intake and Output 03/07/20 03/08/20 19:00 07:00 Intake Total 1540 ml 660 ml Output Total 2600 ml Balance 1540 ml -1940 ml Intake Oral 1000 ml IV Total 540 ml 660 ml Output Urine Total 2600 ml Laboratory Tests 03/08/20 05:25: POC Whole Blood Glucose [Pending] 03/08/20 11:46: POC Whole Blood Glucose 290H 03/08/20 16:31: POC Whole Blood Glucose 287H 03/08/20 20:52: POC Whole Blood Glucose 240H Height (Feet): 5 Height (Inches): 9.00 Weight (Pounds): 220 Assessment/Plan Problem List: (1) Hypoxia ICD Codes: R09.02 - Hypoxemia SNOMED: 194774211 (2) Hyperglycemia ICD Codes: R73.9 - Hyperglycemia, unspecified; J12.89 - Other viral pneumonia SNOMED: 93069857 (3) Pneumonia due to COVID-19 virus ICD Codes: U07.1 - COVID-19; J12.89 - Other viral pneumonia SNOMED: 835307772578511060 (4) Diabetes mellitus ICD Codes: E11.9 - Type 2 diabetes mellitus without complications SNOMED: 43944799 (5) Abdominal pain ICD Codes: R10.9 - Unspecified abdominal pain SNOMED: 91165859 Status: progressing Assessment/Plan: niddm afebrile supportive rx reviewed chart and labs covid positive Jagjit Arauz MD Mar 08, 2020 21:31
--- NOTE | 2020-03-08 22:36 | General Progress Note ---
Subjective Allergies: Coded Allergies: No Known Allergies (Unverified , 03/05/20) Subjective Above noted feels OK no abdominal complaints eating OK Objective Last 24 Hour Vital Signs Date Time Temp Pulse Resp B/P (MAP) Pulse Ox O2 Delivery O2 Flow Rate FiO2 03/08/20 21:00 Room Air 03/08/20 20:00 97.8 60 18 128/81 (97) 94 03/08/20 16:00 98.1 70 20 119/73 (88) 95 03/08/20 12:00 97.6 66 20 120/71 (87) 95 03/08/20 09:00 Nasal Cannula 3.0 03/08/20 08:00 97.3 63 20 126/80 (95) 94 03/08/20 04:00 97.8 59 20 124/83 (97) 92 03/08/20 00:00 97.4 62 18 122/87 (99) 93 Intake and Output 03/07/20 03/08/20 19:00 07:00 Intake Total 1540 ml 660 ml Output Total 2600 ml Balance 1540 ml -1940 ml Intake Oral 1000 ml IV Total 540 ml 660 ml Output Urine Total 2600 ml Laboratory Tests 03/08/20 05:25: POC Whole Blood Glucose [Pending] 03/08/20 11:46: POC Whole Blood Glucose 290H 03/08/20 16:31: POC Whole Blood Glucose 287H 03/08/20 20:52: POC Whole Blood Glucose 240H Height (Feet): 5 Height (Inches): 9.00 Weight (Pounds): 220 Objective Exam limited due to COVID isolation Assessment/Plan Status: progressing Assessment/Plan: Assessment - resolved abdominal symptoms - COVID infection - DM Recommendations - push po - COVID management - follow symptoms Bernadette Orr MD Mar 08, 2020 22:36
[2020-03-09] VITALS: BP 129/80
[2020-03-09 04:00] VITALS: BP 128/80
[2020-03-09] MEDS: NovoLOG Insulin Flexpen SUBQ SCH ×4 (05:52→20:50)
[2020-03-09 06:32] LABS: BASOPHILS % (AUTO) 0.9 % (0.0-2.0); EOSINOPHILS % (AUTO) 0.1 % (0.0-3.0); HEMATOCRIT 39.7 % (42.0-52.0); HEMOGLOBIN 13.8 G/DL (14.2-18.0); LYMPHOCYTES % (AUTO) 33.1 % (20.0-45.0); MEAN CORPUSCULAR VOLUME 86 FL (80-99); MONOCYTES % (AUTO) 11.1 % (1.0-10.0); NEUTROPHILS % (AUTO) 54.8 % (45.0-75.0); PLATELET COUNT 401 K/UL (150-450); RED BLOOD COUNT 4.59 M/UL (4.70-6.10); RED CELL DISTRIBUTION WIDTH 12.3 % (11.6-14.8); WHITE BLOOD COUNT 5.7 K/UL (4.8-10.8)
[2020-03-09 06:45] LABS: ANION GAP 7 mmol/L (5-15); BLOOD UREA NITROGEN 18 mg/dL (7-18); CALCIUM 7.9 MG/DL (8.5-10.1); CARBON DIOXIDE 25 MMOL/L (21-32); CHLORIDE 99 MMOL/L (98-107); CREATININE 0.6 MG/DL (0.55-1.30); POTASSIUM 4.2 MMOL/L (3.5-5.1); SODIUM 131 MMOL/L (136-145)
[2020-03-09 08:00] VITALS: BP 125/82
--- NOTE | 2020-03-09 08:30 | Pulmonology Progress Note ---
Subjective ROS Limited/Unobtainable: Yes Interval Events: none major reported per nursing Constitutional: Reports: no symptoms HEENT: Repors: no symptoms Respiratory: Reports: dry cough Cardiovascular: Reports: no symptoms Gastrointestinal/Abdominal: Reports: no symptoms Allergies: Coded Allergies: No Known Allergies (Unverified , 03/05/20) Objective Last 24 Hour Vital Signs Date Time Temp Pulse Resp B/P (MAP) Pulse Ox O2 Delivery O2 Flow Rate FiO2 03/09/20 04:00 98.1 63 20 128/80 (96) 94 03/09/20 00:00 97.8 68 19 129/80 (96) 95 03/08/20 21:00 Room Air 03/08/20 20:00 97.8 60 18 128/81 (97) 94 03/08/20 16:00 98.1 70 20 119/73 (88) 95 03/08/20 12:00 97.6 66 20 120/71 (87) 95 03/08/20 09:00 Nasal Cannula 3.0 Intake and Output 03/08/20 03/09/20 19:00 07:00 Intake Total 900 ml 650 ml Balance 900 ml 650 ml Intake Oral 900 ml 650 ml # Voids 3 # Bowel Movements 1 Objective 03/09 now on room air saturating at 94-96% 03/08 currently saturating at 92% on 3 L NC HEENT: normocephalic, atraumatic Respiratory: chest wall non-tender, decreased breath sounds Cardiovascular: normal rate Abdomen: soft, non tender Extremities: no edema Laboratory Tests 03/08/20 11:46: POC Whole Blood Glucose 290H 03/08/20 16:31: POC Whole Blood Glucose 287H 03/08/20 20:52: POC Whole Blood Glucose 240H 03/09/20 05:46: POC Whole Blood Glucose 225H 03/09/20 06:00: White Blood Count 5.7, Red Blood Count 4.59L, Hemoglobin 13.8L, Hematocrit 39.7L , Mean Corpuscular Volume 86, Mean Corpuscular Hemoglobin 30.1, Mean Corpuscular Hemoglobin Concent 34.8, Red Cell Distribution Width 12.3, Platelet Count 401, Mean Platelet Volume 6.8, Neutrophils (%) (Auto) 54.8, Lymphocytes (%) (Auto) 33.1, Monocytes (%) (Auto) 11.1H, Eosinophils (%) (Auto) 0.1, Basophils (%) (Auto) 0.9, Sodium Level 131L, Potassium Level 4.2, Chloride Level 99, Carbon Dioxide Level 25, Anion Gap 7, Blood Urea Nitrogen 18, Creatinine 0.6, Estimat Glomerular Filtration Rate > 60, Glucose Level 210H, Calcium Level 7.9L Current Medications Medications (Trade) Dose Ordered Sig/Emi Route PRN Reason Start Time Stop Time Status Last Admin Dose Admin Acetaminophen (Tylenol) 500 mg Q6HR PRN ORAL For Pain 03/06/20 00:00 04/05/20 00:00 Barium Sulfate (Varibar Honey) 250 ml NOW PRN RAD 03/06/20 14:45 03/09/20 14:39 Barium Sulfate (Varibar [place]) 240 ml NOW PRN RAD 03/06/20 14:45 03/09/20 14:39 Barium Sulfate (Varibar Pudding) 230 ml NOW PRN RAD 03/06/20 14:45 03/09/20 14:39 Barium Sulfate (Varibar Thin Liquid powder) 148 gm NOW PRN RAD 03/06/20 14:45 03/09/20 14:39 Dexamethasone Sodium Phosphate (Decadron 10mg/ ml Inj) 6 mg DAILY IV 03/07/20 09:00 06/05/20 08:59 03/08/20 08:39 Dextrose (Dextrose 50%) 25 ml Q30M PRN IV Hypoglycemia 03/06/20 12:43 06/04/20 12:42 Dextrose (Dextrose 50%) 50 ml Q30M PRN IV Hypoglycemia 03/06/20 12:43 06/04/20 12:42 Enoxaparin Sodium (Lovenox) 100 mg Q12HR SUBQ 03/07/20 09:00 06/05/20 08:59 03/08/20 08:40 Famotidine (Pepcid I.v.) 20 mg Q12HR IVP 03/07/20 21:00 04/06/20 20:59 03/08/20 20:51 Guaifenesin/ Dextromethorphan (Robitussin DM Syrup) 10 ml Q6HR PRN ORAL For Cough 03/06/20 00:00 06/04/20 00:00 Insulin Aspart (NovoLOG) BEFORE MEALS AND HS SUBQ 03/06/20 16:30 06/04/20 16:29 03/09/20 05:52 Metformin HCl (Glucophage) 1,000 mg BID ORAL 03/07/20 09:00 04/06/20 08:59 03/08/20 17:15 Pioglitazone HCl (Actos) 15 mg ACBREAKFAST ORAL 03/07/20 06:30 04/06/20 06:29 03/09/20 05:52 Sodium Chloride 1,000 ml @ 60 mls/hr [id number] IV 03/06/20 00:00 04/05/20 00:00 03/08/20 18:11 Assessment/Plan Assessment/Plan 1. COVID-19 pneumonia. - on Decadron - Defer the use of remdesivir to ID specialist. 2. Diabetes mellitus. - on glucose-lowering agents - cont glucose monitoring 3. Hx of hypertension. - in control 4. Hypoxemia. - currently saturating at 94-96% on room air - provide supplemental oxygen as needed DVT ppx - on Lovenox We will follow carefully. The care for this patient was discussed with my supervising physician Time spent for this case was approximately 31 minutes Evangelista Barnes Mar 09, 2020 08:29
[2020-03-09] MEDS: dexAMETHasone 10mg/ml Inj IV SCH (10:00)
[2020-03-09] MEDS: Enoxaparin 100mg Inj SUBQ SCH ×2 (10:01→20:50)
[2020-03-09] MEDS: metFORMIN 500mg tab ORAL SCH ×2 (10:02→17:33)
[2020-03-09 12:00] VITALS: BP 129/80
--- NOTE | 2020-03-09 12:32 | Cardiac Electrophysiology PN ---
Assessment/Plan Assessment/Plan 1. Shortness of breath. Ruled out for [place]. EF 55% This is likely due to the patient's COVID pneumonia. 2. COVID-positive pneumonia. Fu by Pulmonary and ID. On dexamethasone. 3. Diabetes, on insulin. 4. History of hypertension. Blood pressure is currently stable. Subjective Subjective On 2-3 liter Nasal Cannula in NAD but not wearing oxygen Objective Last 24 Hour Vital Signs Date Time Temp Pulse Resp B/P (MAP) Pulse Ox O2 Delivery O2 Flow Rate FiO2 03/09/20 09:00 Room Air 03/09/20 08:00 98.1 60 18 125/82 (96) 92 03/09/20 04:00 98.1 63 20 128/80 (96) 94 03/09/20 00:00 97.8 68 19 129/80 (96) 95 03/08/20 21:00 Room Air 03/08/20 20:00 97.8 60 18 128/81 (97) 94 03/08/20 16:00 98.1 70 20 119/73 (88) 95 Intake and Output 03/08/20 03/09/20 19:00 07:00 Intake Total 900 ml 650 ml Balance 900 ml 650 ml Intake Oral 900 ml 650 ml # Voids 3 # Bowel Movements 1 Laboratory Tests Test 03/08/20 16:31 03/08/20 20:52 03/09/20 05:46 03/09/20 06:00 POC Whole Blood Glucose 287 MG/DL (74-106) H 240 MG/DL (74-106) H 225 MG/DL (74-106) H White Blood Count 5.7 K/UL (4.8-10.8) Red Blood Count 4.59 M/UL (4.70-6.10) L Hemoglobin 13.8 G/DL (14.2-18.0) L Hematocrit 39.7 % (42.0-52.0) L Mean Corpuscular Volume 86 FL (80-99) Mean Corpuscular Hemoglobin 30.1 PG (27.0-31.0) Mean Corpuscular Hemoglobin Concent 34.8 G/DL (32.0-36.0) Red Cell Distribution Width 12.3 % (11.6-14.8) Platelet Count 401 K/UL (150-450) Mean Platelet Volume 6.8 FL (6.5-10.1) Neutrophils (%) (Auto) 54.8 % (45.0-75.0) Lymphocytes (%) (Auto) 33.1 % (20.0-45.0) Monocytes (%) (Auto) 11.1 % (1.0-10.0) H Eosinophils (%) (Auto) 0.1 % (0.0-3.0) Basophils (%) (Auto) 0.9 % (0.0-2.0) Sodium Level 131 MMOL/L (136-145) L Potassium Level 4.2 MMOL/L (3.5-5.1) Chloride Level 99 MMOL/L (98-107) Carbon Dioxide Level 25 MMOL/L (21-32) Anion Gap 7 mmol/L (5-15) Blood Urea Nitrogen 18 mg/dL (7-18) Creatinine 0.6 MG/DL (0.55-1.30) Estimat Glomerular Filtration Rate > 60 mL/min (>60) Glucose Level 210 MG/DL (74-106) H Calcium Level 7.9 MG/DL (8.5-10.1) L Test 03/09/20 12:29 POC Whole Blood Glucose 287 MG/DL (74-106) H Objective HEAD AND NECK: No JVD. LUNGS: Coarse rhonchi. CARDIOVASCULAR: Regular S1 and S2 with no gallop or murmur. ABDOMEN: Soft. EXTREMITIES: No pitting edema. Parish Devlin MD Mar 09, 2020 12:32
--- NOTE | 2020-03-09 13:24 | Infectious Diseases Prog Note ---
Assessment/Plan Assessment/Plan IMPRESSION: COVID-19 pneumonia. Hypoxemia. Diabetes mellitus with hyperglycemia Hypertension. RECOMMENDATION: Continue with dexamethasone Start on Remdesivir Subjective ROS Limited/Unobtainable: No Constitutional: Reports: no symptoms Respiratory: Reports: other - deasatured in am Gastrointestinal/Abdominal: Reports: no symptoms Genitourinary: Reports: no symptoms Allergies: Coded Allergies: No Known Allergies (Unverified , 03/05/20) Objective Last 24 Hour Vital Signs Date Time Temp Pulse Resp B/P (MAP) Pulse Ox O2 Delivery O2 Flow Rate FiO2 03/09/20 12:00 98.1 62 18 129/80 (96) 88 03/09/20 09:00 Room Air 03/09/20 08:00 98.1 60 18 125/82 (96) 92 03/09/20 04:00 98.1 63 20 128/80 (96) 94 03/09/20 00:00 97.8 68 19 129/80 (96) 95 03/08/20 21:00 Room Air 03/08/20 20:00 97.8 60 18 128/81 (97) 94 03/08/20 16:00 98.1 70 20 119/73 (88) 95 Height (Feet): 5 Height (Inches): 9.00 Weight (Pounds): 220 HEENT: mucous membranes moist Respiratory/Chest: other - oxygen by nasal cannula Cardiovascular: normal rate Abdomen: soft, non tender Extremities: no edema Neurologic/Psychiatric: alert, responsive Laboratory Tests Test 03/08/20 16:31 03/08/20 20:52 03/09/20 05:46 03/09/20 06:00 POC Whole Blood Glucose 287 MG/DL (74-106) H 240 MG/DL (74-106) H 225 MG/DL (74-106) H White Blood Count 5.7 K/UL (4.8-10.8) Red Blood Count 4.59 M/UL (4.70-6.10) L Hemoglobin 13.8 G/DL (14.2-18.0) L Hematocrit 39.7 % (42.0-52.0) L Mean Corpuscular Volume 86 FL (80-99) Mean Corpuscular Hemoglobin 30.1 PG (27.0-31.0) Mean Corpuscular Hemoglobin Concent 34.8 G/DL (32.0-36.0) Red Cell Distribution Width 12.3 % (11.6-14.8) Platelet Count 401 K/UL (150-450) Mean Platelet Volume 6.8 FL (6.5-10.1) Neutrophils (%) (Auto) 54.8 % (45.0-75.0) Lymphocytes (%) (Auto) 33.1 % (20.0-45.0) Monocytes (%) (Auto) 11.1 % (1.0-10.0) H Eosinophils (%) (Auto) 0.1 % (0.0-3.0) Basophils (%) (Auto) 0.9 % (0.0-2.0) Sodium Level 131 MMOL/L (136-145) L Potassium Level 4.2 MMOL/L (3.5-5.1) Chloride Level 99 MMOL/L (98-107) Carbon Dioxide Level 25 MMOL/L (21-32) Anion Gap 7 mmol/L (5-15) Blood Urea Nitrogen 18 mg/dL (7-18) Creatinine 0.6 MG/DL (0.55-1.30) Estimat Glomerular Filtration Rate > 60 mL/min (>60) Glucose Level 210 MG/DL (74-106) H Calcium Level 7.9 MG/DL (8.5-10.1) L Test 03/09/20 12:29 POC Whole Blood Glucose 287 MG/DL (74-106) H Current Medications Medications (Trade) Dose Ordered Sig/Emi Route PRN Reason Start Time Stop Time Status Last Admin Dose Admin Acetaminophen (Tylenol) 500 mg Q6HR PRN ORAL For Pain 03/06/20 00:00 04/05/20 00:00 Barium Sulfate (Varibar Honey) 250 ml NOW PRN RAD 03/06/20 14:45 03/09/20 14:39 Barium Sulfate (Varibar [place]) 240 ml NOW PRN RAD 03/06/20 14:45 03/09/20 14:39 Barium Sulfate (Varibar Pudding) 230 ml NOW PRN RAD 03/06/20 14:45 03/09/20 14:39 Barium Sulfate (Varibar Thin Liquid powder) 148 gm NOW PRN RAD 03/06/20 14:45 03/09/20 14:39 Dexamethasone Sodium Phosphate (Decadron 10mg/ ml Inj) 6 mg DAILY IV 03/07/20 09:00 03/17/20 08:59 03/09/20 10:00 Dextrose (Dextrose 50%) 25 ml Q30M PRN IV Hypoglycemia 03/06/20 12:43 06/04/20 12:42 Dextrose (Dextrose 50%) 50 ml Q30M PRN IV Hypoglycemia 03/06/20 12:43 06/04/20 12:42 Enoxaparin Sodium (Lovenox) 100 mg Q12HR SUBQ 03/07/20 09:00 06/05/20 08:59 03/09/20 10:01 Famotidine (Pepcid I.v.) 20 mg Q12HR IVP 03/07/20 21:00 04/06/20 20:59 03/09/20 10:02 Guaifenesin/ Dextromethorphan (Robitussin DM Syrup) 10 ml Q6HR PRN ORAL For Cough 03/06/20 00:00 06/04/20 00:00 Insulin Aspart (NovoLOG) BEFORE MEALS AND HS SUBQ 03/06/20 16:30 06/04/20 16:29 03/09/20 12:45 Metformin HCl (Glucophage) 1,000 mg BID ORAL 03/07/20 09:00 04/06/20 08:59 03/09/20 10:02 Pioglitazone HCl (Actos) 15 mg ACBREAKFAST ORAL 03/07/20 06:30 04/06/20 06:29 03/09/20 05:52 Sodium Chloride 1,000 ml @ 60 mls/hr [id number] IV 03/06/20 00:00 04/05/20 00:00 03/09/20 11:20 Kev Bailon MD Mar 09, 2020 13:24
[2020-03-09 16:00] VITALS: BP 137/80
[2020-03-09 20:00] VITALS: BP 129/85
--- NOTE | 2020-03-09 21:19 | General Progress Note ---
Subjective ROS Limited/Unobtainable: Yes Allergies: Coded Allergies: No Known Allergies (Unverified , 03/05/20) Objective Last 24 Hour Vital Signs Date Time Temp Pulse Resp B/P (MAP) Pulse Ox O2 Delivery O2 Flow Rate FiO2 03/09/20 16:00 97.9 80 22 137/80 (99) 92 03/09/20 12:00 98.1 62 18 129/80 (96) 88 03/09/20 09:00 Room Air 03/09/20 08:00 98.1 60 18 125/82 (96) 92 03/09/20 04:00 98.1 63 20 128/80 (96) 94 03/09/20 00:00 97.8 68 19 129/80 (96) 95 Intake and Output 03/08/20 03/09/20 19:00 07:00 Intake Total 900 ml 650 ml Balance 900 ml 650 ml Intake Oral 900 ml 650 ml # Voids 3 # Bowel Movements 1 Laboratory Tests 03/09/20 05:46: POC Whole Blood Glucose 225H 03/09/20 06:00: White Blood Count 5.7, Red Blood Count 4.59L, Hemoglobin 13.8L, Hematocrit 39.7L , Mean Corpuscular Volume 86, Mean Corpuscular Hemoglobin 30.1, Mean Corpuscular Hemoglobin Concent 34.8, Red Cell Distribution Width 12.3, Platelet Count 401, Mean Platelet Volume 6.8, Neutrophils (%) (Auto) 54.8, Lymphocytes (%) (Auto) 33.1, Monocytes (%) (Auto) 11.1H, Eosinophils (%) (Auto) 0.1, Basophils (%) (Auto) 0.9, Sodium Level 131L, Potassium Level 4.2, Chloride Level 99, Carbon Dioxide Level 25, Anion Gap 7, Blood Urea Nitrogen 18, Creatinine 0.6, Estimat Glomerular Filtration Rate > 60, Glucose Level 210H, Calcium Level 7.9L 03/09/20 12:29: POC Whole Blood Glucose 287H 03/09/20 17:44: POC Whole Blood Glucose 317H Height (Feet): 5 Height (Inches): 9.00 Weight (Pounds): 220 Assessment/Plan Problem List: (1) Hypoxia ICD Codes: R09.02 - Hypoxemia SNOMED: 618183310 (2) Hyperglycemia ICD Codes: R73.9 - Hyperglycemia, unspecified; J12.89 - Other viral pneumonia SNOMED: 76590221 (3) Pneumonia due to COVID-19 virus ICD Codes: U07.1 - COVID-19; J12.89 - Other viral pneumonia SNOMED: 540787016994369137 (4) Diabetes mellitus ICD Codes: E11.9 - Type 2 diabetes mellitus without complications SNOMED: 63307671 (5) Abdominal pain ICD Codes: R10.9 - Unspecified abdominal pain SNOMED: 53683634 Status: progressing Assessment/Plan: niddm sugar is improving afebrile resp insuff s/p hypoxia covid positive Jagjit Arauz MD Mar 09, 2020 21:19
[2020-03-10] VITALS: BP 133/82
[2020-03-10 04:00] VITALS: BP 130/85
[2020-03-10] MEDS: NovoLOG Insulin Flexpen SUBQ SCH ×4 (05:31→21:04)
[2020-03-10 08:00] VITALS: BP 112/69
[2020-03-10] MEDS: dexAMETHasone 10mg/ml Inj IV SCH (08:38)
[2020-03-10] MEDS: metFORMIN 500mg tab ORAL SCH ×2 (08:38→17:11)
[2020-03-10] MEDS: Enoxaparin 100mg Inj SUBQ SCH ×2 (08:39→21:05)
--- NOTE | 2020-03-10 10:54 | Pulmonology Progress Note ---
Subjective ROS Limited/Unobtainable: Yes Interval Events: none major reported per nursing Constitutional: Reports: no symptoms HEENT: Repors: no symptoms Respiratory: Reports: dry cough Cardiovascular: Reports: no symptoms Gastrointestinal/Abdominal: Reports: no symptoms Allergies: Coded Allergies: No Known Allergies (Unverified , 03/05/20) Objective Last 24 Hour Vital Signs Date Time Temp Pulse Resp B/P (MAP) Pulse Ox O2 Delivery O2 Flow Rate FiO2 03/10/20 09:00 Room Air 03/10/20 08:00 97.5 73 18 112/69 (83) 92 03/10/20 04:00 97.8 64 16 130/85 (100) 95 03/10/20 00:00 98.1 78 16 133/82 (99) 92 03/09/20 21:00 Room Air 03/09/20 20:00 97.7 75 18 129/85 (100) 93 03/09/20 16:00 97.9 80 22 137/80 (99) 92 03/09/20 12:00 98.1 62 18 129/80 (96) 88 Intake and Output 03/09/20 03/10/20 19:00 07:00 Intake Total 1200 ml 1080 ml Output Total 1500 ml Balance -300 ml 1080 ml Intake Oral 720 ml 480 ml IV Total 480 ml 600 ml Output Urine Total 1500 ml # Voids 3 # Bowel Movements 1 Objective 03/10 back to 3L NC; saturating at 93% 03/09 now on room air saturating at 94-96% 03/08 currently saturating at 92% on 3 L NC HEENT: normocephalic, atraumatic Respiratory: chest wall non-tender, decreased breath sounds Cardiovascular: normal rate Abdomen: soft, non tender Extremities: no edema Laboratory Tests 03/09/20 12:29: POC Whole Blood Glucose 287H 03/09/20 17:44: POC Whole Blood Glucose 317H 03/10/20 05:30: POC Whole Blood Glucose 236H Current Medications Medications (Trade) Dose Ordered Sig/Emi Route PRN Reason Start Time Stop Time Status Last Admin Dose Admin Acetaminophen (Tylenol) 500 mg Q6HR PRN ORAL For Pain 03/06/20 00:00 04/05/20 00:00 Dexamethasone Sodium Phosphate (Decadron 10mg/ ml Inj) 6 mg DAILY IV 03/07/20 09:00 03/17/20 08:59 03/10/20 08:38 Dextrose (Dextrose 50%) 25 ml Q30M PRN IV Hypoglycemia 03/06/20 12:43 06/04/20 12:42 Dextrose (Dextrose 50%) 50 ml Q30M PRN IV Hypoglycemia 03/06/20 12:43 06/04/20 12:42 Enoxaparin Sodium (Lovenox) 100 mg Q12HR SUBQ 03/07/20 09:00 06/05/20 08:59 03/10/20 08:39 Famotidine (Pepcid I.v.) 20 mg Q12HR IVP 03/07/20 21:00 04/06/20 20:59 03/10/20 08:38 Guaifenesin/ Dextromethorphan (Robitussin DM Syrup) 10 ml Q6HR PRN ORAL For Cough 03/06/20 00:00 06/04/20 00:00 Insulin Aspart (NovoLOG) BEFORE MEALS AND HS SUBQ 03/06/20 16:30 06/04/20 16:29 03/10/20 05:31 Metformin HCl (Glucophage) 1,000 mg BID ORAL 03/07/20 09:00 04/06/20 08:59 03/10/20 08:38 Pioglitazone HCl (Actos) 15 mg ACBREAKFAST ORAL 03/07/20 06:30 04/06/20 06:29 03/10/20 05:28 Sodium Chloride 1,000 ml @ 60 mls/hr [id number] IV 03/06/20 00:00 04/05/20 00:00 03/10/20 05:28 Assessment/Plan Assessment/Plan 1. COVID-19 pneumonia. - on Decadron - Defer the use of remdesivir to ID specialist. 2. Diabetes mellitus. - on glucose-lowering agents - cont glucose monitoring 3. Hx of hypertension. - in control 4. Hypoxemia. - currently saturating at 93% on 3L NC - titrate as tolerated DVT ppx - on Lovenox We will follow carefully. The care for this patient was discussed with my supervising physician Time spent for this case was approximately 31 minutes Evangelista Barnes Mar 10, 2020 10:54
[2020-03-10 12:00] VITALS: BP 115/76
--- NOTE | 2020-03-10 12:00 | Infectious Diseases Prog Note ---
Assessment/Plan Assessment/Plan antibiotics : none A 1. COVID-19 pneumonia on room air with 92 % saturation 2. Diabetes mellitus 3. Hypertension. P 1. continue dexamethasone day 5 2. continue isolation Subjective ROS Limited/Unobtainable: Yes Allergies: Coded Allergies: No Known Allergies (Unverified , 03/05/20) Objective Last 24 Hour Vital Signs Date Time Temp Pulse Resp B/P (MAP) Pulse Ox O2 Delivery O2 Flow Rate FiO2 03/10/20 09:00 Room Air 03/10/20 08:00 97.5 73 18 112/69 (83) 92 03/10/20 04:00 97.8 64 16 130/85 (100) 95 03/10/20 00:00 98.1 78 16 133/82 (99) 92 03/09/20 21:00 Room Air 03/09/20 20:00 97.7 75 18 129/85 (100) 93 03/09/20 16:00 97.9 80 22 137/80 (99) 92 03/09/20 12:00 98.1 62 18 129/80 (96) 88 Height (Feet): 5 Height (Inches): 9.00 Weight (Pounds): 220 Laboratory Tests Test 03/09/20 12:29 03/09/20 17:44 03/10/20 05:30 POC Whole Blood Glucose 287 MG/DL (74-106) H 317 MG/DL (74-106) H 236 MG/DL (74-106) H Current Medications Medications (Trade) Dose Ordered Sig/Emi Route PRN Reason Start Time Stop Time Status Last Admin Dose Admin Acetaminophen (Tylenol) 500 mg Q6HR PRN ORAL For Pain 03/06/20 00:00 04/05/20 00:00 Dexamethasone Sodium Phosphate (Decadron 10mg/ ml Inj) 6 mg DAILY IV 03/07/20 09:00 03/17/20 08:59 03/10/20 08:38 Dextrose (Dextrose 50%) 25 ml Q30M PRN IV Hypoglycemia 03/06/20 12:43 06/04/20 12:42 Dextrose (Dextrose 50%) 50 ml Q30M PRN IV Hypoglycemia 03/06/20 12:43 06/04/20 12:42 Enoxaparin Sodium (Lovenox) 100 mg Q12HR SUBQ 03/07/20 09:00 06/05/20 08:59 03/10/20 08:39 Famotidine (Pepcid I.v.) 20 mg Q12HR IVP 03/07/20 21:00 04/06/20 20:59 03/10/20 08:38 Guaifenesin/ Dextromethorphan (Robitussin DM Syrup) 10 ml Q6HR PRN ORAL For Cough 03/06/20 00:00 06/04/20 00:00 Insulin Aspart (NovoLOG) BEFORE MEALS AND HS SUBQ 03/06/20 16:30 06/04/20 16:29 03/10/20 11:33 Metformin HCl (Glucophage) 1,000 mg BID ORAL 03/07/20 09:00 04/06/20 08:59 03/10/20 08:38 Pioglitazone HCl (Actos) 15 mg ACBREAKFAST ORAL 03/07/20 06:30 04/06/20 06:29 03/10/20 05:28 Sodium Chloride 1,000 ml @ 60 mls/hr [id number] IV 03/06/20 00:00 04/05/20 00:00 03/10/20 05:28 Lidya Lee MD Mar 10, 2020 12:00
--- NOTE | 2020-03-10 15:41 | Cardiac Electrophysiology PN ---
Assessment/Plan Assessment/Plan 1. Shortness of breath. Ruled out for IL. EF 55% This is likely due to the patient's COVID pneumonia. 2. COVID-positive pneumonia. Fu by Pulmonary and ID. On dexamethasone. 3. Diabetes, on insulin. 4. Hypertension. . Subjective Subjective On 2-3 liter Nasal Cannula in NAD Objective Last 24 Hour Vital Signs Date Time Temp Pulse Resp B/P (MAP) Pulse Ox O2 Delivery O2 Flow Rate FiO2 03/10/20 12:00 97.5 73 19 115/76 (89) 94 03/10/20 09:00 Room Air 03/10/20 08:00 97.5 73 18 112/69 (83) 92 03/10/20 04:00 97.8 64 16 130/85 (100) 95 03/10/20 00:00 98.1 78 16 133/82 (99) 92 03/09/20 21:00 Room Air 03/09/20 20:00 97.7 75 18 129/85 (100) 93 03/09/20 16:00 97.9 80 22 137/80 (99) 92 Intake and Output 03/09/20 03/10/20 19:00 07:00 Intake Total 1200 ml 1080 ml Output Total 1500 ml Balance -300 ml 1080 ml Intake Oral 720 ml 480 ml IV Total 480 ml 600 ml Output Urine Total 1500 ml # Voids 3 # Bowel Movements 1 Laboratory Tests Test 03/09/20 17:44 03/10/20 05:30 POC Whole Blood Glucose 317 MG/DL (74-106) H 236 MG/DL (74-106) H Objective HEAD AND NECK: No JVD. LUNGS: Coarse rhonchi. CARDIOVASCULAR: Regular S1 and S2 with no gallop or murmur. ABDOMEN: Soft. EXTREMITIES: No pitting edema. Parish Devlin MD Mar 10, 2020 15:41
[2020-03-10 16:00] VITALS: BP 115/73
--- NOTE | 2020-03-10 19:13 | General Progress Note ---
Subjective Allergies: Coded Allergies: No Known Allergies (Unverified , 03/05/20) Subjective Above noted d/w patient and staffing administrator patient denies abdominal pain appetite OK per patient RN states po intake down BM x 2 per patient, loose Objective Last 24 Hour Vital Signs Date Time Temp Pulse Resp B/P (MAP) Pulse Ox O2 Delivery O2 Flow Rate FiO2 03/10/20 16:00 96.1 75 19 115/73 (87) 94 03/10/20 12:00 97.5 73 19 115/76 (89) 94 03/10/20 09:00 Room Air 03/10/20 08:00 97.5 73 18 112/69 (83) 92 03/10/20 04:00 97.8 64 16 130/85 (100) 95 03/10/20 00:00 98.1 78 16 133/82 (99) 92 03/09/20 21:00 Room Air 03/09/20 20:00 97.7 75 18 129/85 (100) 93 Intake and Output 03/09/20 03/10/20 19:00 07:00 Intake Total 1200 ml 1080 ml Output Total 1500 ml Balance -300 ml 1080 ml Intake Oral 720 ml 480 ml IV Total 480 ml 600 ml Output Urine Total 1500 ml # Voids 3 # Bowel Movements 1 Laboratory Tests 03/10/20 05:30: POC Whole Blood Glucose 236H Height (Feet): 5 Height (Inches): 9.00 Weight (Pounds): 220 Objective Exam limited due to COVID isolation Assessment/Plan Status: progressing Assessment/Plan: Assessment - resolved abdominal pain - diarrhea, presumed due to COVID infection - COVID PNA - DM Recommendations - push po - COVID management - follow symptoms Bernadette Orr MD Mar 10, 2020 19:13
[2020-03-10 20:00] VITALS: BP 136/63
--- NOTE | 2020-03-10 22:08 | General Progress Note ---
Subjective ROS Limited/Unobtainable: Yes Allergies: Coded Allergies: No Known Allergies (Unverified , 03/05/20) Objective Last 24 Hour Vital Signs Date Time Temp Pulse Resp B/P (MAP) Pulse Ox O2 Delivery O2 Flow Rate FiO2 03/10/20 20:00 97.4 72 18 136/63 (87) 95 03/10/20 16:00 96.1 75 19 115/73 (87) 94 03/10/20 12:00 97.5 73 19 115/76 (89) 94 03/10/20 09:00 Room Air 03/10/20 08:00 97.5 73 18 112/69 (83) 92 03/10/20 04:00 97.8 64 16 130/85 (100) 95 03/10/20 00:00 98.1 78 16 133/82 (99) 92 Intake and Output 03/09/20 03/10/20 19:00 07:00 Intake Total 1200 ml 1080 ml Output Total 1500 ml Balance -300 ml 1080 ml Intake Oral 720 ml 480 ml IV Total 480 ml 600 ml Output Urine Total 1500 ml # Voids 3 # Bowel Movements 1 Laboratory Tests 03/10/20 05:30: POC Whole Blood Glucose 236H 03/10/20 20:58: POC Whole Blood Glucose 245H Height (Feet): 5 Height (Inches): 9.00 Weight (Pounds): 220 Assessment/Plan Problem List: (1) Hypoxia ICD Codes: R09.02 - Hypoxemia SNOMED: 861536396 (2) Hyperglycemia ICD Codes: R73.9 - Hyperglycemia, unspecified; J12.89 - Other viral pneumonia SNOMED: 27482702 (3) Pneumonia due to COVID-19 virus ICD Codes: U07.1 - COVID-19; J12.89 - Other viral pneumonia SNOMED: 599613865700363638 (4) Diabetes mellitus ICD Codes: E11.9 - Type 2 diabetes mellitus without complications SNOMED: 18306757 (5) Abdominal pain ICD Codes: R10.9 - Unspecified abdominal pain SNOMED: 83527553 Status: progressing Assessment/Plan: reviewed chart and labs no fever no changes resp insuff s/p hypoxia resolved covid positive Jagjit Arauz MD Mar 10, 2020 22:08
[2020-03-11] VITALS: BP 114/77
[2020-03-11 04:00] VITALS: BP 109/72
[2020-03-11] MEDS: NovoLOG Insulin Flexpen SUBQ SCH ×7 (05:43→21:23)
--- NOTE | 2020-03-11 06:28 | General Progress Note ---
Subjective ROS Limited/Unobtainable: Yes Allergies: Coded Allergies: No Known Allergies (Unverified , 03/05/20) Subjective events noted glucose values are elevated Item Value Date Time Bedside Blood Glucose 198 mg/dl H 03/11/20 0543 Bedside Blood Glucose 245 mg/dl H 03/10/20 2104 Bedside Blood Glucose 304 mg/dl H 03/10/20 1717 Bedside Blood Glucose 292 mg/dl H 03/10/20 1133 Bedside Blood Glucose 236 mg/dl H 03/10/20 0600 Objective Last 24 Hour Vital Signs Date Time Temp Pulse Resp B/P (MAP) Pulse Ox O2 Delivery O2 Flow Rate FiO2 03/11/20 04:00 97.2 68 18 109/72 (84) 97 03/11/20 00:00 97.3 68 17 114/77 (89) 94 03/10/20 21:00 Room Air 03/10/20 20:00 97.4 72 18 136/63 (87) 95 03/10/20 16:00 96.1 75 19 115/73 (87) 94 03/10/20 12:00 97.5 73 19 115/76 (89) 94 03/10/20 09:00 Room Air 03/10/20 08:00 97.5 73 18 112/69 (83) 92 Intake and Output 03/10/20 03/11/20 19:00 07:00 Intake Total 1680 ml 600 ml Balance 1680 ml 600 ml Intake Oral 960 ml IV Total 720 ml 600 ml # Voids 4 Laboratory Tests 03/10/20 20:58: POC Whole Blood Glucose 245H Height (Feet): 5 Height (Inches): 9.00 Weight (Pounds): 220 Objective Current Medications Medications (Trade) Dose Ordered Sig/Emi Route PRN Reason Start Time Stop Time Status Last Admin Dose Admin Acetaminophen (Tylenol) 500 mg Q6HR PRN ORAL For Pain 03/06/20 00:00 04/05/20 00:00 Dexamethasone Sodium Phosphate (Decadron 10mg/ ml Inj) 6 mg DAILY IV 03/07/20 09:00 03/17/20 08:59 03/10/20 08:38 Dextrose (Dextrose 50%) 25 ml Q30M PRN IV Hypoglycemia 03/06/20 12:43 06/04/20 12:42 Dextrose (Dextrose 50%) 50 ml Q30M PRN IV Hypoglycemia 03/06/20 12:43 06/04/20 12:42 Enoxaparin Sodium (Lovenox) 100 mg Q12HR SUBQ 03/07/20 09:00 06/05/20 08:59 03/10/20 21:05 Famotidine (Pepcid) 20 mg BID ORAL 03/10/20 18:00 06/08/20 17:59 03/10/20 17:11 Guaifenesin/ Dextromethorphan (Robitussin DM Syrup) 10 ml Q6HR PRN ORAL For Cough 03/06/20 00:00 06/04/20 00:00 Insulin Aspart (NovoLOG) BEFORE MEALS AND HS SUBQ 03/06/20 16:30 06/04/20 16:29 03/11/20 05:43 Metformin HCl (Glucophage) 1,000 mg BID ORAL 03/07/20 09:00 04/06/20 08:59 03/10/20 17:11 Pioglitazone HCl (Actos) 15 mg ACBREAKFAST ORAL 03/07/20 06:30 04/06/20 06:29 03/11/20 05:41 Sodium Chloride 1,000 ml @ 60 mls/hr [id number] IV 03/06/20 00:00 04/05/20 00:00 03/10/20 21:03 Assessment/Plan Problem List: (1) Diabetes mellitus ICD Codes: E11.9 - Type 2 diabetes mellitus without complications SNOMED: 00417635 (2) Pneumonia due to COVID-19 virus ICD Codes: U07.1 - COVID-19; J12.89 - Other viral pneumonia SNOMED: 669922771794693428 (3) Hypoxia ICD Codes: R09.02 - Hypoxemia SNOMED: 179769398 (4) Hyperglycemia ICD Codes: R73.9 - Hyperglycemia, unspecified; J12.89 - Other viral pneumonia SNOMED: 39990822 Status: progressing Assessment/Plan: add Levemir 10 units daily add Novolog 6 units ac tid continue Metformin as is continue Novolog sliding scale ac hs Lloyd Pavon MD Mar 11, 2020 06:28
[2020-03-11 08:00] VITALS: BP 112/69
[2020-03-11] MEDS: Enoxaparin 100mg Inj SUBQ SCH ×2 (09:57→21:22)
[2020-03-11] MEDS: Levemir Flexpen SUBQ SCH (09:57)
[2020-03-11] MEDS: metFORMIN 500mg tab ORAL SCH ×2 (09:58→17:37)
[2020-03-11] MEDS: dexAMETHasone 10mg/ml Inj IV SCH (09:58)
[2020-03-11 12:00] VITALS: BP 98/63
--- NOTE | 2020-03-11 15:18 | Pulmonology Progress Note ---
Subjective ROS Limited/Unobtainable: Yes Interval Events: none major reported per nursing Constitutional: Reports: no symptoms HEENT: Repors: no symptoms Respiratory: Reports: dry cough Cardiovascular: Reports: no symptoms Gastrointestinal/Abdominal: Reports: no symptoms Allergies: Coded Allergies: No Known Allergies (Unverified , 03/05/20) Objective Last 24 Hour Vital Signs Date Time Temp Pulse Resp B/P (MAP) Pulse Ox O2 Delivery O2 Flow Rate FiO2 03/11/20 12:00 97.4 85 18 98/63 (75) 92 03/11/20 08:00 97.8 75 18 112/69 (83) 92 03/11/20 04:00 97.2 68 18 109/72 (84) 97 03/11/20 00:00 97.3 68 17 114/77 (89) 94 03/10/20 21:00 Room Air 03/10/20 20:00 97.4 72 18 136/63 (87) 95 03/10/20 16:00 96.1 75 19 115/73 (87) 94 Intake and Output 03/10/20 03/11/20 19:00 07:00 Intake Total 1680 ml 660 ml Balance 1680 ml 660 ml Intake Oral 960 ml IV Total 720 ml 660 ml # Voids 4 2 Objective 03/11 remains to be on 3L NC; saturating 92%. titrate as tolerated 03/10 back to 3L NC; saturating at 93% 03/09 now on room air saturating at 94-96% 03/08 currently saturating at 92% on 3 L NC HEENT: normocephalic, atraumatic Respiratory: chest wall non-tender, decreased breath sounds Cardiovascular: normal rate Abdomen: soft, non tender Extremities: no edema Laboratory Tests 03/10/20 17:14: POC Whole Blood Glucose [Pending] 03/10/20 20:58: POC Whole Blood Glucose 245H 03/11/20 05:39: POC Whole Blood Glucose 198H 03/11/20 09:34: POC Whole Blood Glucose 164H 03/11/20 13:17: POC Whole Blood Glucose 311H Current Medications Medications (Trade) Dose Ordered Sig/Emi Route PRN Reason Start Time Stop Time Status Last Admin Dose Admin Acetaminophen (Tylenol) 500 mg Q6HR PRN ORAL For Pain 03/06/20 00:00 04/05/20 00:00 Dexamethasone Sodium Phosphate (Decadron 10mg/ ml Inj) 6 mg DAILY IV 03/07/20 09:00 03/17/20 08:59 03/11/20 09:58 Dextrose (Dextrose 50%) 25 ml Q30M PRN IV Hypoglycemia 03/06/20 12:43 06/04/20 12:42 Dextrose (Dextrose 50%) 50 ml Q30M PRN IV Hypoglycemia 03/06/20 12:43 06/04/20 12:42 Enoxaparin Sodium (Lovenox) 100 mg Q12HR SUBQ 03/07/20 09:00 06/05/20 08:59 03/11/20 09:57 Famotidine (Pepcid) 20 mg BID ORAL 03/10/20 18:00 06/08/20 17:59 03/11/20 09:58 Guaifenesin/ Dextromethorphan (Robitussin DM Syrup) 10 ml Q6HR PRN ORAL For Cough 03/06/20 00:00 06/04/20 00:00 Insulin Aspart (NovoLOG) BEFORE MEALS AND HS SUBQ 03/06/20 16:30 06/04/20 16:29 03/11/20 13:23 Insulin Aspart (NovoLOG) 6 units NOVOTIAC SUBQ 03/11/20 07:00 06/09/20 06:59 03/11/20 13:24 Insulin Detemir (Levemir) 10 units DAILY SUBQ 03/11/20 09:00 06/09/20 08:59 03/11/20 09:57 Metformin HCl (Glucophage) 1,000 mg BID ORAL 03/07/20 09:00 04/06/20 08:59 03/11/20 09:58 Pioglitazone HCl (Actos) 15 mg ACBREAKFAST ORAL 03/07/20 06:30 04/06/20 06:29 03/11/20 05:41 Sodium Chloride 1,000 ml @ 60 mls/hr [id number] IV 03/06/20 00:00 04/05/20 00:00 03/10/20 21:03 Assessment/Plan Assessment/Plan 1. COVID-19 pneumonia. - on Decadron - Defer the use of remdesivir to ID specialist. 2. Diabetes mellitus. - on glucose-lowering agents - cont glucose monitoring 3. Hx of hypertension. - in control 4. Hypoxemia. - currently saturating at 92% on 3L NC - titrate as tolerated DVT ppx - on Lovenox We will follow carefully. The care for this patient was discussed with my supervising physician Time spent for this case was approximately 31 minutes Evangelista Barnes Mar 11, 2020 15:18
[2020-03-11 16:00] VITALS: BP 111/65
--- NOTE | 2020-03-11 16:27 | General Progress Note ---
Subjective ROS Limited/Unobtainable: Yes Allergies: Coded Allergies: No Known Allergies (Unverified , 03/05/20) Objective Last 24 Hour Vital Signs Date Time Temp Pulse Resp B/P (MAP) Pulse Ox O2 Delivery O2 Flow Rate FiO2 03/11/20 12:00 97.4 85 18 98/63 (75) 92 03/11/20 09:00 Nasal Cannula 3.0 03/11/20 08:00 97.8 75 18 112/69 (83) 92 03/11/20 04:00 97.2 68 18 109/72 (84) 97 03/11/20 00:00 97.3 68 17 114/77 (89) 94 03/10/20 21:00 Room Air 03/10/20 20:00 97.4 72 18 136/63 (87) 95 Intake and Output 03/10/20 03/11/20 19:00 07:00 Intake Total 1680 ml 660 ml Balance 1680 ml 660 ml Intake Oral 960 ml IV Total 720 ml 660 ml # Voids 4 2 Laboratory Tests 03/10/20 17:14: POC Whole Blood Glucose [Pending] 03/10/20 20:58: POC Whole Blood Glucose 245H 03/11/20 05:39: POC Whole Blood Glucose 198H 03/11/20 09:34: POC Whole Blood Glucose 164H 03/11/20 13:17: POC Whole Blood Glucose 311H Height (Feet): 5 Height (Inches): 9.00 Weight (Pounds): 220 Assessment/Plan Problem List: (1) Hypoxia ICD Codes: R09.02 - Hypoxemia SNOMED: 428283209 (2) Hyperglycemia ICD Codes: R73.9 - Hyperglycemia, unspecified; J12.89 - Other viral pneumonia SNOMED: 67365438 (3) Pneumonia due to COVID-19 virus ICD Codes: U07.1 - COVID-19; J12.89 - Other viral pneumonia SNOMED: 259777734087642233 (4) Diabetes mellitus ICD Codes: E11.9 - Type 2 diabetes mellitus without complications SNOMED: 24472239 (5) Abdominal pain ICD Codes: R10.9 - Unspecified abdominal pain SNOMED: 30731421 Status: progressing Assessment/Plan: pna reviewed chart and labs and meds no fever resp insuff s/p hypoxia resolved covid positive Jagjit Arauz MD Mar 11, 2020 16:27
--- NOTE | 2020-03-11 16:41 | Infectious Diseases Prog Note ---
Assessment/Plan Assessment/Plan IMPRESSION: COVID-19 pneumonia. Hypoxemia. Diabetes mellitus with hyperglycemia Hypertension. RECOMMENDATION: O2 saturation in room air 92-95% Discontinue dexamethasone Subjective ROS Limited/Unobtainable: No Constitutional: Reports: no symptoms Respiratory: Reports: no symptoms Gastrointestinal/Abdominal: Reports: no symptoms Genitourinary: Reports: no symptoms Allergies: Coded Allergies: No Known Allergies (Unverified , 03/05/20) Objective Last 24 Hour Vital Signs Date Time Temp Pulse Resp B/P (MAP) Pulse Ox O2 Delivery O2 Flow Rate FiO2 03/11/20 12:00 97.4 85 18 98/63 (75) 92 03/11/20 09:00 Nasal Cannula 3.0 03/11/20 08:00 97.8 75 18 112/69 (83) 92 03/11/20 04:00 97.2 68 18 109/72 (84) 97 03/11/20 00:00 97.3 68 17 114/77 (89) 94 03/10/20 21:00 Room Air 03/10/20 20:00 97.4 72 18 136/63 (87) 95 Height (Feet): 5 Height (Inches): 9.00 Weight (Pounds): 220 General Appearance: no acute distress HEENT: mucous membranes moist Respiratory/Chest: other - oxygen by nasal cannula Cardiovascular: normal rate Abdomen: soft, non tender Extremities: no edema Neurologic/Psychiatric: alert, oriented x 3, responsive Laboratory Tests Test 03/10/20 17:14 03/10/20 20:58 03/11/20 05:39 03/11/20 09:34 POC Whole Blood Glucose Pending 245 MG/DL (74-106) H 198 MG/DL (74-106) H 164 MG/DL (74-106) H Test 03/11/20 13:17 POC Whole Blood Glucose 311 MG/DL (74-106) H Current Medications Medications (Trade) Dose Ordered Sig/Emi Route PRN Reason Start Time Stop Time Status Last Admin Dose Admin Acetaminophen (Tylenol) 500 mg Q6HR PRN ORAL For Pain 03/06/20 00:00 04/05/20 00:00 Dexamethasone Sodium Phosphate (Decadron 10mg/ ml Inj) 6 mg DAILY IV 03/07/20 09:00 03/17/20 08:59 03/11/20 09:58 Dextrose (Dextrose 50%) 25 ml Q30M PRN IV Hypoglycemia 03/06/20 12:43 06/04/20 12:42 Dextrose (Dextrose 50%) 50 ml Q30M PRN IV Hypoglycemia 03/06/20 12:43 06/04/20 12:42 Enoxaparin Sodium (Lovenox) 100 mg Q12HR SUBQ 03/07/20 09:00 06/05/20 08:59 03/11/20 09:57 Famotidine (Pepcid) 20 mg BID ORAL 03/10/20 18:00 06/08/20 17:59 03/11/20 09:58 Guaifenesin/ Dextromethorphan (Robitussin DM Syrup) 10 ml Q6HR PRN ORAL For Cough 03/06/20 00:00 06/04/20 00:00 Insulin Aspart (NovoLOG) BEFORE MEALS AND HS SUBQ 03/06/20 16:30 06/04/20 16:29 03/11/20 13:23 Insulin Aspart (NovoLOG) 6 units NOVOTIAC SUBQ 03/11/20 07:00 06/09/20 06:59 03/11/20 13:24 Insulin Detemir (Levemir) 10 units DAILY SUBQ 03/11/20 09:00 06/09/20 08:59 03/11/20 09:57 Metformin HCl (Glucophage) 1,000 mg BID ORAL 03/07/20 09:00 04/06/20 08:59 03/11/20 09:58 Pioglitazone HCl (Actos) 15 mg ACBREAKFAST ORAL 03/07/20 06:30 04/06/20 06:29 03/11/20 05:41 Sodium Chloride 1,000 ml @ 60 mls/hr [id number] IV 03/06/20 00:00 04/05/20 00:00 03/11/20 16:30 Kev Bailon MD Mar 11, 2020 16:41
[2020-03-11 20:00] VITALS: BP 124/73
--- NOTE | 2020-03-11 20:04 | Cardiac Electrophysiology PN ---
Assessment/Plan Assessment/Plan 1. Shortness of breath. Ruled out for DC. EF 55% Likely due to the patient's COVID pneumonia. 2. COVID-positive pneumonia. Fu by Pulmonary and ID. On dexamethasone. 3. Diabetes, on insulin. 4. Hypertension. . Subjective Subjective On 3 liter Nasal Cannula in NAD with sat 92% Objective Last 24 Hour Vital Signs Date Time Temp Pulse Resp B/P (MAP) Pulse Ox O2 Delivery O2 Flow Rate FiO2 03/11/20 16:00 97.6 87 18 111/65 (80) 93 03/11/20 12:00 97.4 85 18 98/63 (75) 92 03/11/20 09:00 Nasal Cannula 3.0 03/11/20 08:00 97.8 75 18 112/69 (83) 92 03/11/20 04:00 97.2 68 18 109/72 (84) 97 03/11/20 00:00 97.3 68 17 114/77 (89) 94 03/10/20 21:00 Room Air Intake and Output 03/10/20 03/11/20 19:00 07:00 Intake Total 1680 ml 660 ml Balance 1680 ml 660 ml Intake Oral 960 ml IV Total 720 ml 660 ml # Voids 4 2 Laboratory Tests Test 03/10/20 20:58 03/11/20 05:39 03/11/20 09:34 03/11/20 13:17 POC Whole Blood Glucose 245 MG/DL (74-106) H 198 MG/DL (74-106) H 164 MG/DL (74-106) H 311 MG/DL (74-106) H Test 03/11/20 16:37 POC Whole Blood Glucose 310 MG/DL (74-106) H Objective HEAD AND NECK: No JVD. LUNGS: Coarse rhonchi. CARDIOVASCULAR: Regular S1 and S2 with no gallop or murmur. ABDOMEN: Soft. EXTREMITIES: No pitting edema. Parish Devlin MD Mar 11, 2020 20:04
--- NOTE | 2020-03-11 21:10 | General Progress Note ---
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 patient denies abdominal pain appetite OK per patient RN states po intake down BM x 2 per patient, still loose Objective Last 24 Hour Vital Signs Date Time Temp Pulse Resp B/P (MAP) Pulse Ox O2 Delivery O2 Flow Rate FiO2 03/11/20 16:00 97.6 87 18 111/65 (80) 93 03/11/20 12:00 97.4 85 18 98/63 (75) 92 03/11/20 09:00 Nasal Cannula 3.0 03/11/20 08:00 97.8 75 18 112/69 (83) 92 03/11/20 04:00 97.2 68 18 109/72 (84) 97 03/11/20 00:00 97.3 68 17 114/77 (89) 94 Intake and Output 03/10/20 03/11/20 19:00 07:00 Intake Total 1680 ml 660 ml Balance 1680 ml 660 ml Intake Oral 960 ml IV Total 720 ml 660 ml # Voids 4 2 Laboratory Tests 03/11/20 05:39: POC Whole Blood Glucose 198H 03/11/20 09:34: POC Whole Blood Glucose 164H 03/11/20 13:17: POC Whole Blood Glucose 311H 03/11/20 16:37: POC Whole Blood Glucose 310H Height (Feet): 5 Height (Inches): 9.00 Weight (Pounds): 220 Objective Exam limited due to COVID isolation Assessment/Plan Status: progressing Assessment/Plan: Assessment - resolved abdominal pain - diarrhea, presumed due to COVID infection - COVID PNA - DM Recommendations - push po - check stool Cx - COVID management - follow symptoms Bernadette Orr MD Mar 11, 2020 21:10
[2020-03-12] VITALS: BP 130/69
[2020-03-12 04:00] VITALS: BP 121/72
[2020-03-12 08:00] VITALS: BP 99/66
[2020-03-12] MEDS: NovoLOG Insulin Flexpen SUBQ SCH ×6 (08:06→20:09)
--- NOTE | 2020-03-12 08:23 | Pulmonology Progress Note ---
Subjective ROS Limited/Unobtainable: No Interval Events: none major reported per nursing Constitutional: Reports: no symptoms HEENT: Repors: no symptoms Respiratory: Reports: dry cough Cardiovascular: Reports: no symptoms Gastrointestinal/Abdominal: Reports: no symptoms Allergies: Coded Allergies: No Known Allergies (Unverified , 03/05/20) Objective Last 24 Hour Vital Signs Date Time Temp Pulse Resp B/P (MAP) Pulse Ox O2 Delivery O2 Flow Rate FiO2 03/12/20 04:00 97.6 88 18 121/72 (88) 93 03/12/20 00:00 97.1 82 18 130/69 (89) 94 03/11/20 21:00 Room Air 03/11/20 20:00 97.9 89 18 124/73 (90) 94 03/11/20 16:00 97.6 87 18 111/65 (80) 93 03/11/20 12:00 97.4 85 18 98/63 (75) 92 03/11/20 09:00 Nasal Cannula 3.0 Intake and Output 03/11/20 03/12/20 19:00 07:00 Intake Total 1600 ml 1160 ml Balance 1600 ml 1160 ml Intake Oral 1000 ml 560 ml IV Total 600 ml 600 ml # Voids 6 3 # Bowel Movements 4 Objective 03/12 per nursing, ambulatory saturation at 92-95% on RA 03/11 remains to be on 3L NC; saturating 92%. titrate as tolerated 03/10 back to 3L NC; saturating at 93% 03/09 now on room air saturating at 94-96% 03/08 currently saturating at 92% on 3 L NC HEENT: normocephalic, atraumatic Respiratory: chest wall non-tender, decreased breath sounds Cardiovascular: normal rate Abdomen: soft, non tender Extremities: no edema Laboratory Tests 03/11/20 09:34: POC Whole Blood Glucose 164H 03/11/20 13:17: POC Whole Blood Glucose 311H 03/11/20 16:37: POC Whole Blood Glucose 310H 03/12/20 06:37: POC Whole Blood Glucose [Pending] Current Medications Medications (Trade) Dose Ordered Sig/Emi Route PRN Reason Start Time Stop Time Status Last Admin Dose Admin Acetaminophen (Tylenol) 500 mg Q6HR PRN ORAL For Pain 03/06/20 00:00 04/05/20 00:00 Dextrose (Dextrose 50%) 25 ml Q30M PRN IV Hypoglycemia 03/06/20 12:43 06/04/20 12:42 Dextrose (Dextrose 50%) 50 ml Q30M PRN IV Hypoglycemia 03/06/20 12:43 06/04/20 12:42 Enoxaparin Sodium (Lovenox) 100 mg Q12HR SUBQ 03/07/20 09:00 06/05/20 08:59 03/11/20 21:22 Famotidine (Pepcid) 20 mg BID ORAL 03/10/20 18:00 06/08/20 17:59 03/11/20 17:37 Guaifenesin/ Dextromethorphan (Robitussin DM Syrup) 10 ml Q6HR PRN ORAL For Cough 03/06/20 00:00 06/04/20 00:00 Insulin Aspart (NovoLOG) BEFORE MEALS AND HS SUBQ 03/06/20 16:30 06/04/20 16:29 03/12/20 08:06 Insulin Aspart (NovoLOG) 6 units NOVOTIAC SUBQ 03/11/20 07:00 06/09/20 06:59 03/12/20 08:07 Insulin Detemir (Levemir) 10 units DAILY SUBQ 03/11/20 09:00 06/09/20 08:59 03/11/20 09:57 Metformin HCl (Glucophage) 1,000 mg BID ORAL 03/07/20 09:00 04/06/20 08:59 03/11/20 17:37 Pioglitazone HCl (Actos) 15 mg ACBREAKFAST ORAL 03/07/20 06:30 04/06/20 06:29 03/12/20 08:04 Sodium Chloride 1,000 ml @ 60 mls/hr [id number] IV 03/06/20 00:00 04/05/20 00:00 03/11/20 16:30 Assessment/Plan Assessment/Plan 1. COVID-19 pneumonia. - s/p Decadron (03/07-03/11) - Defer the use of remdesivir to ID specialist. 2. Diabetes mellitus. - on glucose-lowering agents - cont glucose monitoring 3. Hx of hypertension. - in control 4. Hypoxemia.; improving - per nursing, ambulatory saturation at 92-95% on room air; will recheck saturation at rest - titrate as tolerated DVT ppx - on Lovenox We will follow carefully. The care for this patient was discussed with my supervising physician Time spent for this case was approximately 31 minutes Evangelista Barnes Mar 12, 2020 08:23
[2020-03-12] MEDS: Enoxaparin 100mg Inj SUBQ SCH ×2 (08:53→20:10)
[2020-03-12] MEDS: Levemir Flexpen SUBQ SCH (08:54)
[2020-03-12] MEDS: metFORMIN 500mg tab ORAL SCH ×2 (08:56→18:40)
[2020-03-12 12:00] VITALS: BP 105/69
--- NOTE | 2020-03-12 13:54 | Infectious Diseases Prog Note ---
Assessment/Plan Assessment/Plan IMPRESSION: COVID-19 pneumonia. Hypoxemia. Diabetes mellitus with hyperglycemia Hypertension. RECOMMENDATION: If remains stable in room air oxygen can be discharged Subjective ROS Limited/Unobtainable: Yes Constitutional: Reports: no symptoms Respiratory: Reports: no symptoms Gastrointestinal/Abdominal: Reports: no symptoms Genitourinary: Reports: no symptoms Allergies: Coded Allergies: No Known Allergies (Unverified , 03/05/20) Objective Last 24 Hour Vital Signs Date Time Temp Pulse Resp B/P (MAP) Pulse Ox O2 Delivery O2 Flow Rate FiO2 03/12/20 12:00 98.1 74 18 105/69 (81) 98 03/12/20 09:00 Nasal Cannula 2.0 03/12/20 08:00 97.9 73 18 99/66 (77) 94 03/12/20 04:00 97.6 88 18 121/72 (88) 93 03/12/20 00:00 97.1 82 18 130/69 (89) 94 03/11/20 21:00 Room Air 03/11/20 20:00 97.9 89 18 124/73 (90) 94 03/11/20 16:00 97.6 87 18 111/65 (80) 93 Height (Feet): 5 Height (Inches): 9.00 Weight (Pounds): 220 HEENT: mucous membranes moist Respiratory/Chest: no respiratory distress Cardiovascular: normal rate Abdomen: soft, non tender Extremities: no edema Neurologic/Psychiatric: alert, responsive Laboratory Tests Test 03/11/20 16:37 03/12/20 06:37 03/12/20 08:43 POC Whole Blood Glucose 310 MG/DL (74-106) H Pending 201 MG/DL (74-106) H Current Medications Medications (Trade) Dose Ordered Sig/Emi Route PRN Reason Start Time Stop Time Status Last Admin Dose Admin Acetaminophen (Tylenol) 500 mg Q6HR PRN ORAL For Pain 03/06/20 00:00 04/05/20 00:00 Dextrose (Dextrose 50%) 25 ml Q30M PRN IV Hypoglycemia 03/06/20 12:43 06/04/20 12:42 Dextrose (Dextrose 50%) 50 ml Q30M PRN IV Hypoglycemia 03/06/20 12:43 06/04/20 12:42 Enoxaparin Sodium (Lovenox) 100 mg Q12HR SUBQ 03/07/20 09:00 06/05/20 08:59 03/12/20 08:53 Famotidine (Pepcid) 20 mg BID ORAL 03/10/20 18:00 06/08/20 17:59 03/12/20 08:55 Guaifenesin/ Dextromethorphan (Robitussin DM Syrup) 10 ml Q6HR PRN ORAL For Cough 03/06/20 00:00 06/04/20 00:00 Insulin Aspart (NovoLOG) BEFORE MEALS AND HS SUBQ 03/06/20 16:30 06/04/20 16:29 03/12/20 12:32 Insulin Aspart (NovoLOG) 6 units NOVOTIAC SUBQ 03/11/20 07:00 06/09/20 06:59 03/12/20 12:33 Insulin Detemir (Levemir) 10 units DAILY SUBQ 03/11/20 09:00 06/09/20 08:59 03/12/20 08:54 Metformin HCl (Glucophage) 1,000 mg BID ORAL 03/07/20 09:00 04/06/20 08:59 03/12/20 08:56 Pioglitazone HCl (Actos) 15 mg ACBREAKFAST ORAL 03/07/20 06:30 04/06/20 06:29 03/12/20 08:04 Sodium Chloride 1,000 ml @ 60 mls/hr [id number] IV 03/06/20 00:00 04/05/20 00:00 03/12/20 08:56 Kev Bailon MD Mar 12, 2020 13:54
--- NOTE | 2020-03-12 14:48 | Cardiac Electrophysiology PN ---
Assessment/Plan Assessment/Plan 1. Shortness of breath. Ruled out for CT. EF 55% Likely due to COVID pneumonia. 2. COVID-positive pneumonia. Fu by Pulmonary and ID. On dexamethasone. 3. Diabetes, on insulin. 4. Hypertension. Stable off BP meds . Subjective Subjective On 3 liter Nasal Cannula in NAD with sat 92% Objective Last 24 Hour Vital Signs Date Time Temp Pulse Resp B/P (MAP) Pulse Ox O2 Delivery O2 Flow Rate FiO2 03/12/20 12:00 98.1 74 18 105/69 (81) 98 03/12/20 09:00 Nasal Cannula 2.0 03/12/20 08:00 97.9 73 18 99/66 (77) 94 03/12/20 04:00 97.6 88 18 121/72 (88) 93 03/12/20 00:00 97.1 82 18 130/69 (89) 94 03/11/20 21:00 Room Air 03/11/20 20:00 97.9 89 18 124/73 (90) 94 03/11/20 16:00 97.6 87 18 111/65 (80) 93 Intake and Output 03/11/20 03/12/20 19:00 07:00 Intake Total 1600 ml 1220 ml Balance 1600 ml 1220 ml Intake Oral 1000 ml 560 ml IV Total 600 ml 660 ml # Voids 6 3 # Bowel Movements 4 Laboratory Tests Test 03/11/20 16:37 03/12/20 06:37 03/12/20 08:43 POC Whole Blood Glucose 310 MG/DL (74-106) H Pending 201 MG/DL (74-106) H Objective HEAD AND NECK: No JVD. LUNGS: Coarse rhonchi. CARDIOVASCULAR: Regular S1 and S2 with no gallop or murmur. ABDOMEN: Soft. EXTREMITIES: No pitting edema. Parish Devlin MD Mar 12, 2020 14:48
--- NOTE | 2020-03-12 15:06 | General Progress Note ---
Subjective Allergies: Coded Allergies: No Known Allergies (Unverified , 03/05/20) All Systems: reviewed and negative except above Subjective events noted glucose values improved after scheduled insulin added no longer on dex Item Value Date Time Bedside Blood Glucose 155 mg/dl H 03/12/20 1233 Bedside Blood Glucose 201 mg/dl H 03/12/20 0854 Bedside Blood Glucose 160 mg/dl H 03/12/20 0639 Bedside Blood Glucose 238 mg/dl H 03/11/20 2123 Bedside Blood Glucose 310 mg/dl H 03/11/20 1739 Bedside Blood Glucose 311 mg/dl H 03/11/20 1324 Objective Last 24 Hour Vital Signs Date Time Temp Pulse Resp B/P (MAP) Pulse Ox O2 Delivery O2 Flow Rate FiO2 03/12/20 12:00 98.1 74 18 105/69 (81) 98 03/12/20 09:00 Nasal Cannula 2.0 03/12/20 08:00 97.9 73 18 99/66 (77) 94 03/12/20 04:00 97.6 88 18 121/72 (88) 93 03/12/20 00:00 97.1 82 18 130/69 (89) 94 03/11/20 21:00 Room Air 03/11/20 20:00 97.9 89 18 124/73 (90) 94 03/11/20 16:00 97.6 87 18 111/65 (80) 93 Intake and Output 03/11/20 03/12/20 19:00 07:00 Intake Total 1600 ml 1220 ml Balance 1600 ml 1220 ml Intake Oral 1000 ml 560 ml IV Total 600 ml 660 ml # Voids 6 3 # Bowel Movements 4 Laboratory Tests 03/11/20 16:37: POC Whole Blood Glucose 310H 03/12/20 06:37: POC Whole Blood Glucose [Pending] 03/12/20 08:43: POC Whole Blood Glucose 201H Height (Feet): 5 Height (Inches): 9.00 Weight (Pounds): 220 Objective Current Medications Medications (Trade) Dose Ordered Sig/Emi Route PRN Reason Start Time Stop Time Status Last Admin Dose Admin Acetaminophen (Tylenol) 500 mg Q6HR PRN ORAL For Pain 03/06/20 00:00 04/05/20 00:00 Dextrose (Dextrose 50%) 25 ml Q30M PRN IV Hypoglycemia 03/06/20 12:43 3/26/21 12:42 Dextrose (Dextrose 50%) 50 ml Q30M PRN IV Hypoglycemia 03/06/20 12:43 06/04/20 12:42 Enoxaparin Sodium (Lovenox) 100 mg Q12HR SUBQ 03/07/20 09:00 06/05/20 08:59 03/12/20 08:53 Famotidine (Pepcid) 20 mg BID ORAL 03/10/20 18:00 06/08/20 17:59 03/12/20 08:55 Guaifenesin/ Dextromethorphan (Robitussin DM Syrup) 10 ml Q6HR PRN ORAL For Cough 03/06/20 00:00 06/04/20 00:00 Insulin Aspart (NovoLOG) BEFORE MEALS AND HS SUBQ 03/06/20 16:30 06/04/20 16:29 03/12/20 12:32 Insulin Aspart (NovoLOG) 6 units NOVOTIAC SUBQ 03/11/20 07:00 06/09/20 06:59 03/12/20 12:33 Insulin Detemir (Levemir) 10 units DAILY SUBQ 03/11/20 09:00 06/09/20 08:59 03/12/20 08:54 Metformin HCl (Glucophage) 1,000 mg BID ORAL 03/07/20 09:00 04/06/20 08:59 03/12/20 08:56 Pioglitazone HCl (Actos) 15 mg ACBREAKFAST ORAL 03/07/20 06:30 04/06/20 06:29 03/12/20 08:04 Sodium Chloride 1,000 ml @ 60 mls/hr [id number] IV 03/06/20 00:00 04/05/20 00:00 03/12/20 08:56 Assessment/Plan Problem List: (1) Diabetes mellitus ICD Codes: E11.9 - Type 2 diabetes mellitus without complications SNOMED: 29921104 (2) Pneumonia due to COVID-19 virus ICD Codes: U07.1 - COVID-19; J12.89 - Other viral pneumonia SNOMED: 497939944761701773 (3) Hypoxia ICD Codes: R09.02 - Hypoxemia SNOMED: 463105241 (4) Hyperglycemia ICD Codes: R73.9 - Hyperglycemia, unspecified; J12.89 - Other viral pneumonia SNOMED: 28636666 Status: progressing Assessment/Plan: continue Levemir 10 units daily DC Novolog 6 units ac tid continue Metformin as is add Januvia 100 mg daily continue Novolog sliding scale ac hs Lloyd Pavon MD Mar 12, 2020 15:06
[2020-03-12 16:00] VITALS: BP 106/69
[2020-03-12 19:52] VITALS: BP 101/68
--- NOTE | 2020-03-12 20:19 | General Progress Note ---
Subjective ROS Limited/Unobtainable: Yes Allergies: Coded Allergies: No Known Allergies (Unverified , 03/05/20) Objective Last 24 Hour Vital Signs Date Time Temp Pulse Resp B/P (MAP) Pulse Ox O2 Delivery O2 Flow Rate FiO2 03/12/20 19:52 98.1 77 18 101/68 (79) 97 03/12/20 16:00 98.8 68 18 106/69 (81) 97 03/12/20 12:00 98.1 74 18 105/69 (81) 98 03/12/20 09:00 Nasal Cannula 2.0 03/12/20 08:00 97.9 73 18 99/66 (77) 94 03/12/20 04:00 97.6 88 18 121/72 (88) 93 03/12/20 00:00 97.1 82 18 130/69 (89) 94 03/11/20 21:00 Room Air Intake and Output 03/11/20 03/12/20 19:00 07:00 Intake Total 1600 ml 1220 ml Balance 1600 ml 1220 ml Intake Oral 1000 ml 560 ml IV Total 600 ml 660 ml # Voids 6 3 # Bowel Movements 4 Laboratory Tests 03/12/20 06:37: POC Whole Blood Glucose [Pending] 03/12/20 08:43: POC Whole Blood Glucose 201H 03/12/20 16:42: POC Whole Blood Glucose [Pending] Height (Feet): 5 Height (Inches): 9.00 Weight (Pounds): 220 Assessment/Plan Problem List: (1) Hypoxia ICD Codes: R09.02 - Hypoxemia SNOMED: 424788211 (2) Hyperglycemia ICD Codes: R73.9 - Hyperglycemia, unspecified; J12.89 - Other viral pneumonia SNOMED: 00919690 (3) Pneumonia due to COVID-19 virus ICD Codes: U07.1 - COVID-19; J12.89 - Other viral pneumonia SNOMED: 590328872388585652 (4) Diabetes mellitus ICD Codes: E11.9 - Type 2 diabetes mellitus without complications SNOMED: 29600955 (5) Abdominal pain ICD Codes: R10.9 - Unspecified abdominal pain SNOMED: 08871211 Status: progressing Assessment/Plan: not hypoxic weak no wheezing no fever resp insuff covid positive Jagjit Arauz MD Mar 12, 2020 20:19
--- NOTE | 2020-03-12 20:38 | General Progress Note ---
Subjective Allergies: Coded Allergies: No Known Allergies (Unverified , 03/05/20) Subjective Above noted d/w RN no abdominal complaints Objective Last 24 Hour Vital Signs Date Time Temp Pulse Resp B/P (MAP) Pulse Ox O2 Delivery O2 Flow Rate FiO2 03/12/20 19:52 98.1 77 18 101/68 (79) 97 03/12/20 16:00 98.8 68 18 106/69 (81) 97 03/12/20 12:00 98.1 74 18 105/69 (81) 98 03/12/20 09:00 Nasal Cannula 2.0 03/12/20 08:00 97.9 73 18 99/66 (77) 94 03/12/20 04:00 97.6 88 18 121/72 (88) 93 03/12/20 00:00 97.1 82 18 130/69 (89) 94 03/11/20 21:00 Room Air Intake and Output 03/11/20 03/12/20 19:00 07:00 Intake Total 1600 ml 1220 ml Balance 1600 ml 1220 ml Intake Oral 1000 ml 560 ml IV Total 600 ml 660 ml # Voids 6 3 # Bowel Movements 4 Laboratory Tests 03/12/20 06:37: POC Whole Blood Glucose [Pending] 03/12/20 08:43: POC Whole Blood Glucose 201H 03/12/20 16:42: POC Whole Blood Glucose [Pending] Height (Feet): 5 Height (Inches): 9.00 Weight (Pounds): 220 Objective Exam limited due to COVID isolation Assessment/Plan Status: progressing Assessment/Plan: Assessment - resolved abdominal pain - diarrhea, presumed due to COVID infection - COVID PNA - DM Recommendations - push po - check stool Cx - COVID management - follow symptoms Bernadette Orr MD Mar 12, 2020 20:38
[2020-03-13] VITALS (7 sets, daily range): BP systolic 97–131; BP diastolic 63–90
[2020-03-13] MEDS: NovoLOG Insulin Flexpen SUBQ SCH ×4 (06:05→21:19)
--- NOTE | 2020-03-13 08:29 | General Progress Note ---
Subjective Allergies: Coded Allergies: No Known Allergies (Unverified , 03/05/20) All Systems: reviewed and negative except above Subjective events noted glucose values improved Item Value Date Time Bedside Blood Glucose 183 mg/dl H 03/13/20 0608 Bedside Blood Glucose 161 mg/dl H 03/12/202017 Bedside Blood Glucose 113 mg/dl 03/12/20 1630 Bedside Blood Glucose 155 mg/dl H 03/12/20 1233 Bedside Blood Glucose 201 mg/dl H 03/12/20 0854 Objective Last 24 Hour Vital Signs Date Time Temp Pulse Resp B/P (MAP) Pulse Ox O2 Delivery O2 Flow Rate FiO2 03/13/20 04:00 97.2 76 18 102/63 (76) 92 03/13/20 00:00 97.5 61 18 97/64 (75) 96 03/12/20 21:00 Room Air 03/12/20 19:52 98.1 77 18 101/68 (79) 97 03/12/20 16:00 98.8 68 18 106/69 (81) 97 03/12/20 12:00 98.1 74 18 105/69 (81) 98 03/12/20 09:00 Nasal Cannula 2.0 Intake and Output 03/12/20 03/13/20 19:00 07:00 Intake Total 1600 ml 920 ml Balance 1600 ml 920 ml Intake Oral 1000 ml 500 ml IV Total 600 ml 420 ml # Voids 3 3 Laboratory Tests 03/12/20 08:43: POC Whole Blood Glucose 201H 03/12/20 16:42: POC Whole Blood Glucose [Pending] Height (Feet): 5 Height (Inches): 9.00 Weight (Pounds): 220 Objective Current Medications Medications (Trade) Dose Ordered Sig/Emi Route PRN Reason Start Time Stop Time Status Last Admin Dose Admin Acetaminophen (Tylenol) 500 mg Q6HR PRN ORAL For Pain 03/06/20 00:00 04/05/20 00:00 Dextrose (Dextrose 50%) 25 ml Q30M PRN IV Hypoglycemia 03/06/20 12:43 06/04/20 12:42 Dextrose (Dextrose 50%) 50 ml Q30M PRN IV Hypoglycemia 03/06/20 12:43 06/04/20 12:42 Enoxaparin Sodium (Lovenox) 100 mg Q12HR SUBQ 03/07/20 09:00 3/27/21 08:59 03/12/20 20:10 Famotidine (Pepcid) 20 mg BID ORAL 03/10/20 18:00 06/08/20 17:59 03/12/20 18:40 Guaifenesin/ Dextromethorphan (Robitussin DM Syrup) 10 ml Q6HR PRN ORAL For Cough 03/06/20 00:00 06/04/20 00:00 Insulin Aspart (NovoLOG) BEFORE MEALS AND HS SUBQ 03/06/20 16:30 06/04/20 16:29 03/13/20 06:05 Insulin Detemir (Levemir) 10 units DAILY SUBQ 03/11/20 09:00 06/09/20 08:59 03/12/20 08:54 Metformin HCl (Glucophage) 1,000 mg BID ORAL 03/07/20 09:00 04/06/20 08:59 03/12/20 18:40 Pioglitazone HCl (Actos) 15 mg ACBREAKFAST ORAL 03/07/20 06:30 04/06/20 06:29 03/13/20 06:00 Sitagliptin Phosphate (Januvia) 100 mg ACBREAKFAST ORAL 03/13/20 06:30 04/12/20 06:29 03/13/20 06:00 Sodium Chloride 1,000 ml @ 60 mls/hr [id number] IV 03/06/20 00:00 04/05/20 00:00 03/12/20 08:56 Assessment/Plan Problem List: (1) Diabetes mellitus ICD Codes: E11.9 - Type 2 diabetes mellitus without complications SNOMED: 22603106 (2) Pneumonia due to COVID-19 virus ICD Codes: U07.1 - COVID-19; J12.89 - Other viral pneumonia SNOMED: 778418594461105335 (3) Hypoxia ICD Codes: R09.02 - Hypoxemia SNOMED: 424336011 (4) Hyperglycemia ICD Codes: R73.9 - Hyperglycemia, unspecified; J12.89 - Other viral pneumonia SNOMED: 24748006 Status: progressing Assessment/Plan: continue Levemir 10 units daily continue Metformin and Actos as is continue Januvia 100 mg daily continue Novolog sliding scale ac hs Lloyd Pavon MD Mar 13, 2020 08:29
--- NOTE | 2020-03-13 08:36 | Pulmonology Progress Note ---
Subjective ROS Limited/Unobtainable: Yes Interval Events: stayed on RA since yesterday Constitutional: Reports: no symptoms HEENT: Repors: no symptoms Respiratory: Reports: dry cough - mild; improved Cardiovascular: Reports: no symptoms Gastrointestinal/Abdominal: Reports: no symptoms Allergies: Coded Allergies: No Known Allergies (Unverified , 03/05/20) All Systems: reviewed and negative except above Objective Last 24 Hour Vital Signs Date Time Temp Pulse Resp B/P (MAP) Pulse Ox O2 Delivery O2 Flow Rate FiO2 03/13/20 04:00 97.2 76 18 102/63 (76) 92 03/13/20 00:00 97.5 61 18 97/64 (75) 96 03/12/20 21:00 Room Air 03/12/20 19:52 98.1 77 18 101/68 (79) 97 03/12/20 16:00 98.8 68 18 106/69 (81) 97 03/12/20 12:00 98.1 74 18 105/69 (81) 98 03/12/20 09:00 Nasal Cannula 2.0 Intake and Output 03/12/20 03/13/20 19:00 07:00 Intake Total 1600 ml 920 ml Balance 1600 ml 920 ml Intake Oral 1000 ml 500 ml IV Total 600 ml 420 ml # Voids 3 3 Objective 03/13 saturating 92-94% on RA since yesterday 03/12 per nursing, ambulatory saturation at 92-95% on RA 03/11 remains to be on 3L NC; saturating 92%. titrate as tolerated 03/10 back to 3L NC; saturating at 93% 03/09 now on room air saturating at 94-96% 03/08 currently saturating at 92% on 3 L NC HEENT: normocephalic, atraumatic Respiratory: chest wall non-tender, decreased breath sounds Cardiovascular: normal rate Abdomen: soft, non tender Extremities: no edema Laboratory Tests 03/12/20 08:43: POC Whole Blood Glucose 201H 03/12/20 16:42: POC Whole Blood Glucose [Pending] Current Medications Medications (Trade) Dose Ordered Sig/Emi Route PRN Reason Start Time Stop Time Status Last Admin Dose Admin Acetaminophen (Tylenol) 500 mg Q6HR PRN ORAL For Pain 03/06/20 00:00 04/05/20 00:00 Dextrose (Dextrose 50%) 25 ml Q30M PRN IV Hypoglycemia 03/06/20 12:43 06/04/20 12:42 Dextrose (Dextrose 50%) 50 ml Q30M PRN IV Hypoglycemia 03/06/20 12:43 06/04/20 12:42 Enoxaparin Sodium (Lovenox) 100 mg Q12HR SUBQ 03/07/20 09:00 06/05/20 08:59 03/12/20 20:10 Famotidine (Pepcid) 20 mg BID ORAL 03/10/20 18:00 06/08/20 17:59 03/12/20 18:40 Guaifenesin/ Dextromethorphan (Robitussin DM Syrup) 10 ml Q6HR PRN ORAL For Cough 03/06/20 00:00 06/04/20 00:00 Insulin Aspart (NovoLOG) BEFORE MEALS AND HS SUBQ 03/06/20 16:30 06/04/20 16:29 03/13/20 06:05 Insulin Detemir (Levemir) 10 units DAILY SUBQ 03/11/20 09:00 06/09/20 08:59 03/12/20 08:54 Metformin HCl (Glucophage) 1,000 mg BID ORAL 03/07/20 09:00 04/06/20 08:59 03/12/20 18:40 Pioglitazone HCl (Actos) 15 mg ACBREAKFAST ORAL 03/07/20 06:30 04/06/20 06:29 03/13/20 06:00 Sitagliptin Phosphate (Januvia) 100 mg ACBREAKFAST ORAL 03/13/20 06:30 04/12/20 06:29 03/13/20 06:00 Sodium Chloride 1,000 ml @ 60 mls/hr [id number] IV 03/06/20 00:00 04/05/20 00:00 03/12/20 08:56 Assessment/Plan Assessment/Plan 1. COVID-19 pneumonia. - s/p Decadron (03/07-03/11) - Defer the use of remdesivir to ID specialist. 2. Diabetes mellitus. - on glucose-lowering agents - cont glucose monitoring 3. Hx of hypertension. - in control 4. Hypoxemia.; improving - saturating at 92-94% on RA since yesterday DVT ppx - on Lovenox Medically stable for dc from pulmonary point of view We will follow carefully. The care for this patient was discussed with my supervising physician Time spent for this case was approximately 31 minutes Evangelista Barnes Mar 13, 2020 08:35
[2020-03-13] MEDS: metFORMIN 500mg tab ORAL SCH ×2 (10:09→17:20)
[2020-03-13] MEDS: Enoxaparin 100mg Inj SUBQ SCH ×2 (10:11→21:17)
[2020-03-13] MEDS: Levemir Flexpen SUBQ SCH (10:12)
--- NOTE | 2020-03-13 14:46 | Infectious Diseases Prog Note ---
Assessment/Plan Assessment/Plan IMPRESSION: COVID-19 pneumonia. Hypoxemia. Diabetes mellitus with hyperglycemia Hypertension. RECOMMENDATION: can be discharged to home Subjective ROS Limited/Unobtainable: No Constitutional: Reports: no symptoms Respiratory: Reports: no symptoms Cardiovascular: Reports: no symptoms Gastrointestinal/Abdominal: Reports: no symptoms Genitourinary: Reports: no symptoms Allergies: Coded Allergies: No Known Allergies (Unverified , 03/05/20) Objective Last 24 Hour Vital Signs Date Time Temp Pulse Resp B/P (MAP) Pulse Ox O2 Delivery O2 Flow Rate FiO2 03/13/20 12:00 97.6 82 18 111/68 (82) 93 03/13/20 09:00 Room Air 03/13/20 08:00 97.2 80 18 111/68 (82) 93 03/13/20 04:00 97.2 76 18 102/63 (76) 92 03/13/20 00:00 97.5 61 18 97/64 (75) 96 03/12/20 21:00 Room Air 03/12/20 19:52 98.1 77 18 101/68 (79) 97 03/12/20 16:00 98.8 68 18 106/69 (81) 97 Height (Feet): 5 Height (Inches): 9.00 Weight (Pounds): 220 General Appearance: no acute distress HEENT: mucous membranes moist Respiratory/Chest: lungs clear Cardiovascular: normal rate Abdomen: soft, non tender Extremities: no edema Neurologic/Psychiatric: alert, oriented x 3, responsive Laboratory Tests Test 03/12/20 16:42 03/13/20 11:41 POC Whole Blood Glucose Pending 246 MG/DL (74-106) H Current Medications Medications (Trade) Dose Ordered Sig/Emi Route PRN Reason Start Time Stop Time Status Last Admin Dose Admin Acetaminophen (Tylenol) 500 mg Q6HR PRN ORAL For Pain 03/06/20 00:00 04/05/20 00:00 Dextrose (Dextrose 50%) 25 ml Q30M PRN IV Hypoglycemia 03/06/20 12:43 06/04/20 12:42 Dextrose (Dextrose 50%) 50 ml Q30M PRN IV Hypoglycemia 03/06/20 12:43 06/04/20 12:42 Enoxaparin Sodium (Lovenox) 100 mg Q12HR SUBQ 03/07/20 09:00 06/05/20 08:59 03/13/20 10:11 Famotidine (Pepcid) 20 mg BID ORAL 03/10/20 18:00 06/08/20 17:59 03/13/20 10:09 Guaifenesin/ Dextromethorphan (Robitussin DM Syrup) 10 ml Q6HR PRN ORAL For Cough 03/06/20 00:00 06/04/20 00:00 Insulin Aspart (NovoLOG) BEFORE MEALS AND HS SUBQ 03/06/20 16:30 06/04/20 16:29 03/13/20 11:51 Insulin Detemir (Levemir) 10 units DAILY SUBQ 03/11/20 09:00 06/09/20 08:59 03/13/20 10:12 Metformin HCl (Glucophage) 1,000 mg BID ORAL 03/07/20 09:00 04/06/20 08:59 03/13/20 10:09 Pioglitazone HCl (Actos) 15 mg ACBREAKFAST ORAL 03/07/20 06:30 04/06/20 06:29 03/13/20 06:00 Sitagliptin Phosphate (Januvia) 100 mg ACBREAKFAST ORAL 03/13/20 06:30 04/12/20 06:29 03/13/20 06:00 Sodium Chloride 1,000 ml @ 60 mls/hr [id number] IV 03/06/20 00:00 04/05/20 00:00 03/12/20 08:56 Kev Bailon MD Mar 13, 2020 14:46
--- NOTE | 2020-03-13 15:11 | General Progress Note ---
Subjective ROS Limited/Unobtainable: Yes Allergies: Coded Allergies: No Known Allergies (Unverified , 03/05/20) Objective Last 24 Hour Vital Signs Date Time Temp Pulse Resp B/P (MAP) Pulse Ox O2 Delivery O2 Flow Rate FiO2 03/13/20 12:00 97.6 82 18 111/68 (82) 93 03/13/20 09:00 Room Air 03/13/20 08:00 97.2 80 18 111/68 (82) 93 03/13/20 04:00 97.2 76 18 102/63 (76) 92 03/13/20 00:00 97.5 61 18 97/64 (75) 96 03/12/20 21:00 Room Air 03/12/20 19:52 98.1 77 18 101/68 (79) 97 03/12/20 16:00 98.8 68 18 106/69 (81) 97 Intake and Output 03/12/20 03/13/20 19:00 07:00 Intake Total 1600 ml 920 ml Balance 1600 ml 920 ml Intake Oral 1000 ml 500 ml IV Total 600 ml 420 ml # Voids 3 3 Laboratory Tests 03/12/20 16:42: POC Whole Blood Glucose [Pending] 03/13/20 11:41: POC Whole Blood Glucose 246H Height (Feet): 5 Height (Inches): 9.00 Weight (Pounds): 220 Assessment/Plan Problem List: (1) Hypoxia ICD Codes: R09.02 - Hypoxemia SNOMED: 558090193 (2) Hyperglycemia ICD Codes: R73.9 - Hyperglycemia, unspecified; J12.89 - Other viral pneumonia SNOMED: 78632179 (3) Pneumonia due to COVID-19 virus ICD Codes: U07.1 - COVID-19; J12.89 - Other viral pneumonia SNOMED: 523585964509299324 (4) Diabetes mellitus ICD Codes: E11.9 - Type 2 diabetes mellitus without complications SNOMED: 50176881 (5) Abdominal pain ICD Codes: R10.9 - Unspecified abdominal pain SNOMED: 12717644 Status: progressing Assessment/Plan: afebrile niddm check sugar resp insuff covid positive Jagjit Arauz MD Mar 13, 2020 15:11
--- NOTE | 2020-03-13 19:40 | Cardiac Electrophysiology PN ---
Assessment/Plan Assessment/Plan 1. Shortness of breath. Ruled out for GA. EF 55% Due to COVID pneumonia. 2. COVID-positive pneumonia. Fu by Pulmonary and ID. On dexamethasone. RA today 3. Diabetes, on insulin. 4. Hypertension. Stable off BP meds . Subjective Subjective On Room Air today in NAD with sat 92% off Abx Objective Last 24 Hour Vital Signs Date Time Temp Pulse Resp B/P (MAP) Pulse Ox O2 Delivery O2 Flow Rate FiO2 03/13/20 16:00 97.8 86 18 103/64 (77) 93 03/13/20 12:00 97.6 82 18 111/68 (82) 93 03/13/20 09:00 Room Air 03/13/20 08:00 97.2 80 18 111/68 (82) 93 03/13/20 04:00 97.2 76 18 102/63 (76) 92 03/13/20 00:00 97.5 61 18 97/64 (75) 96 03/12/20 21:00 Room Air 03/12/20 19:52 98.1 77 18 101/68 (79) 97 Intake and Output 03/12/20 03/13/20 18:59 06:59 Intake Total 1660 ml 920 ml Balance 1660 ml 920 ml Intake Oral 1000 ml 500 ml IV Total 660 ml 420 ml # Voids 3 3 Laboratory Tests Test 03/13/20 11:41 03/13/20 16:38 POC Whole Blood Glucose 246 MG/DL (74-106) H 155 MG/DL (74-106) H Objective HEAD AND NECK: No JVD. LUNGS: Coarse rhonchi. CARDIOVASCULAR: Regular S1 and S2 with no gallop or murmur. ABDOMEN: Soft. EXTREMITIES: No pitting edema. Parish Devlin MD Mar 13, 2020 19:40
--- NOTE | 2020-03-13 19:53 | General Progress Note ---
Subjective Allergies: Coded Allergies: No Known Allergies (Unverified , 03/05/20) Subjective Above noted d/w RN no abdominal complaints diarrhea resolved Objective Last 24 Hour Vital Signs Date Time Temp Pulse Resp B/P (MAP) Pulse Ox O2 Delivery O2 Flow Rate FiO2 03/13/20 16:00 97.8 86 18 103/64 (77) 93 03/13/20 12:00 97.6 82 18 111/68 (82) 93 03/13/20 09:00 Room Air 03/13/20 08:00 97.2 80 18 111/68 (82) 93 03/13/20 04:00 97.2 76 18 102/63 (76) 92 03/13/20 00:00 97.5 61 18 97/64 (75) 96 03/12/20 21:00 Room Air Intake and Output 03/12/20 03/13/20 19:00 07:00 Intake Total 1600 ml 920 ml Balance 1600 ml 920 ml Intake Oral 1000 ml 500 ml IV Total 600 ml 420 ml # Voids 3 3 Laboratory Tests 03/13/20 11:41: POC Whole Blood Glucose 246H 03/13/20 16:38: POC Whole Blood Glucose 155H Height (Feet): 5 Height (Inches): 9.00 Weight (Pounds): 220 Objective Exam limited due to COVID isolation Assessment/Plan Status: progressing Assessment/Plan: Assessment - resolved abdominal pain - diarrhea, presumed due to COVID infection - resolved - COVID PNA - DM Recommendations - push po - COVID management - OK for D/C from GI standpoint Bernadette Orr MD Mar 13, 2020 19:53
[2020-03-14] MEDS: NovoLOG Insulin Flexpen SUBQ SCH ×2 (05:58→11:30)
[2020-03-14 08:00] VITALS: BP 105/75
[2020-03-14] MEDS: Enoxaparin 100mg Inj SUBQ SCH (09:18)
[2020-03-14] MEDS: Levemir Flexpen SUBQ SCH (09:19)
[2020-03-14] MEDS: metFORMIN 500mg tab ORAL SCH (09:19)
--- NOTE | 2020-03-14 09:59 | General Progress Note ---
Subjective Allergies: Coded Allergies: No Known Allergies (Unverified , 03/05/20) All Systems: reviewed and negative except above Subjective events noted glucose values are stable without hypoglycemia Item Value Date Time Bedside Blood Glucose 167 mg/dl H 03/14/20 0919 Bedside Blood Glucose 167 mg/dl H 03/14/20 0558 Bedside Blood Glucose 140 mg/dl H 03/13/20 2119 Bedside Blood Glucose 155 mg/dl H 03/13/20 1654 Bedside Blood Glucose 246 mg/dl H 03/13/20 1151 Bedside Blood Glucose 183 mg/dl H 03/13/20 1012 Bedside Blood Glucose 183 mg/dl H 03/13/20 0608 Objective Last 24 Hour Vital Signs Date Time Temp Pulse Resp B/P (MAP) Pulse Ox O2 Delivery O2 Flow Rate FiO2 03/13/20 23:54 03/13/20 21:00 Room Air 03/13/20 20:00 97.7 68 16 131/90 (104) 94 03/13/20 16:00 97.8 86 18 103/64 (77) 93 03/13/20 12:00 97.6 82 18 111/68 (82) 93 Intake and Output 03/13/20 03/14/20 19:00 07:00 Intake Total 1150 ml 600 ml Balance 1150 ml 600 ml Intake Oral 1150 ml 600 ml # Voids 3 3 Laboratory Tests 03/13/20 11:41: POC Whole Blood Glucose 246H 03/13/20 16:38: POC Whole Blood Glucose 155H 03/13/20 21:12: POC Whole Blood Glucose 140H 03/14/20 05:57: POC Whole Blood Glucose 167H Height (Feet): 5 Height (Inches): 9.00 Weight (Pounds): 220 Objective Current Medications Medications (Trade) Dose Ordered Sig/Emi Route PRN Reason Start Time Stop Time Status Last Admin Dose Admin Acetaminophen (Tylenol) 500 mg Q6HR PRN ORAL For Pain 03/06/20 00:00 04/05/20 00:00 Dextrose (Dextrose 50%) 25 ml Q30M PRN IV Hypoglycemia 03/06/20 12:43 06/04/20 12:42 Dextrose (Dextrose 50%) 50 ml Q30M PRN IV Hypoglycemia 03/06/20 12:43 06/04/20 12:42 Enoxaparin Sodium (Lovenox) 100 mg Q12HR SUBQ 03/07/20 09:00 06/05/20 08:59 03/14/20 09:18 Famotidine (Pepcid) 20 mg BID ORAL 03/10/20 18:00 06/08/20 17:59 03/14/20 09:19 Guaifenesin/ Dextromethorphan (Robitussin DM Syrup) 10 ml Q6HR PRN ORAL For Cough 03/06/20 00:00 06/04/20 00:00 Insulin Aspart (NovoLOG) BEFORE MEALS AND HS SUBQ 03/06/20 16:30 06/04/20 16:29 03/14/20 05:58 Insulin Detemir (Levemir) 10 units DAILY SUBQ 03/11/20 09:00 06/09/20 08:59 03/14/20 09:19 Metformin HCl (Glucophage) 1,000 mg BID ORAL 03/07/20 09:00 04/06/20 08:59 03/14/20 09:19 Pioglitazone HCl (Actos) 15 mg ACBREAKFAST ORAL 03/07/20 06:30 04/06/20 06:29 03/14/20 05:58 Sitagliptin Phosphate (Januvia) 100 mg ACBREAKFAST ORAL 03/13/20 06:30 04/12/20 06:29 03/14/20 05:58 Sodium Chloride 1,000 ml @ 60 mls/hr [id number] IV 03/06/20 00:00 04/05/20 00:00 03/13/20 17:21 Assessment/Plan Problem List: (1) Diabetes mellitus ICD Codes: E11.9 - Type 2 diabetes mellitus without complications SNOMED: 15225804 (2) Pneumonia due to COVID-19 virus ICD Codes: U07.1 - COVID-19; J12.89 - Other viral pneumonia SNOMED: 315708285790660124 (3) Hypoxia ICD Codes: R09.02 - Hypoxemia SNOMED: 118257967 (4) Hyperglycemia ICD Codes: R73.9 - Hyperglycemia, unspecified; J12.89 - Other viral pneumonia SNOMED: 57663223 Status: progressing Assessment/Plan: continue Levemir 10 units daily continue Metformin and Actos as is continue Januvia 100 mg daily continue Novolog sliding scale ac hs Lloyd Pavon MD Mar 14, 2020 09:59
[2020-03-14] MEDS ORDERED: 1/2 NS 1000ml IV ONE (10:05)
--- NOTE | 2020-03-14 11:26 | Pulmonology Progress Note ---
Subjective ROS Limited/Unobtainable: Yes Interval Events: stayed on RA Constitutional: Reports: no symptoms HEENT: Repors: no symptoms Respiratory: Reports: dry cough - mild; improved Cardiovascular: Reports: no symptoms Gastrointestinal/Abdominal: Reports: no symptoms Allergies: Coded Allergies: No Known Allergies (Unverified , 03/05/20) All Systems: reviewed and negative except above Objective Last 24 Hour Vital Signs Date Time Temp Pulse Resp B/P (MAP) Pulse Ox O2 Delivery O2 Flow Rate FiO2 03/14/20 09:00 Room Air 03/14/20 08:00 97.0 82 18 105/75 (85) 94 03/13/20 23:54 03/13/20 21:00 Room Air 03/13/20 20:00 97.7 68 16 131/90 (104) 94 03/13/20 16:00 97.8 86 18 103/64 (77) 93 03/13/20 12:00 97.6 82 18 111/68 (82) 93 Intake and Output 03/13/20 03/14/20 19:00 07:00 Intake Total 1150 ml 600 ml Balance 1150 ml 600 ml Intake Oral 1150 ml 600 ml # Voids 3 3 Objective 03/14 saturating at >94% on RA 03/13 saturating 92-94% on RA since yesterday 03/12 per nursing, ambulatory saturation at 92-95% on RA 03/11 remains to be on 3L NC; saturating 92%. titrate as tolerated 03/10 back to 3L NC; saturating at 93% 03/09 now on room air saturating at 94-96% 03/08 currently saturating at 92% on 3 L NC HEENT: normocephalic, atraumatic Respiratory: chest wall non-tender, decreased breath sounds Cardiovascular: normal rate Abdomen: soft, non tender Extremities: no edema Laboratory Tests 03/13/20 11:41: POC Whole Blood Glucose 246H 03/13/20 16:38: POC Whole Blood Glucose 155H 03/13/20 21:12: POC Whole Blood Glucose 140H 03/14/20 05:57: POC Whole Blood Glucose 167H Current Medications Medications (Trade) Dose Ordered Sig/Emi Route PRN Reason Start Time Stop Time Status Last Admin Dose Admin Acetaminophen (Tylenol) 500 mg Q6HR PRN ORAL For Pain 03/06/20 00:00 04/05/20 00:00 Dextrose (Dextrose 50%) 25 ml Q30M PRN IV Hypoglycemia 03/06/20 12:43 06/04/20 12:42 Dextrose (Dextrose 50%) 50 ml Q30M PRN IV Hypoglycemia 03/06/20 12:43 06/04/20 12:42 Enoxaparin Sodium (Lovenox) 100 mg Q12HR SUBQ 03/07/20 09:00 06/05/20 08:59 03/14/20 09:18 Famotidine (Pepcid) 20 mg BID ORAL 03/10/20 18:00 06/08/20 17:59 03/14/20 09:19 Guaifenesin/ Dextromethorphan (Robitussin DM Syrup) 10 ml Q6HR PRN ORAL For Cough 03/06/20 00:00 06/04/20 00:00 Insulin Aspart (NovoLOG) BEFORE MEALS AND HS SUBQ 03/06/20 16:30 06/04/20 16:29 03/14/20 05:58 Insulin Detemir (Levemir) 10 units DAILY SUBQ 03/11/20 09:00 06/09/20 08:59 03/14/20 09:19 Metformin HCl (Glucophage) 1,000 mg BID ORAL 03/07/20 09:00 04/06/20 08:59 03/14/20 09:19 Pioglitazone HCl (Actos) 15 mg ACBREAKFAST ORAL 03/07/20 06:30 04/06/20 06:29 03/14/20 05:58 Sitagliptin Phosphate (Januvia) 100 mg ACBREAKFAST ORAL 03/13/20 06:30 04/12/20 06:29 03/14/20 05:58 Sodium Chloride 1,000 ml @ 60 mls/hr [id number] IV 03/06/20 00:00 04/05/20 00:00 03/13/20 17:21 Assessment/Plan Assessment/Plan 1. COVID-19 pneumonia. - s/p Decadron (03/07-03/11) - Defer the use of remdesivir to ID specialist. 2. Diabetes mellitus. - on glucose-lowering agents - cont glucose monitoring 3. Hx of hypertension. - in control 4. Hypoxemia.; improving - saturating at >94% on RA DVT ppx - on Lovenox Medically stable for dc from pulmonary point of view We will follow carefully. The care for this patient was discussed with my supervising physician Time spent for this case was approximately 31 minutes Evangelista Barnes Mar 14, 2020 11:26
--- NOTE | 2020-03-14 16:08 | CDS Physician Query ---
Clarification is required for compliance, coding accuracy, and to reflect severity of illness for this patient Dear Dr. Jagjit Arauz M.D Date: 03/14/2020 Correctional Therapy Teacher/CDS Name: MARIA ALEJANDRA JAIME Clinical Documentation States: 49 YOP is diabetic and comes in because of shortness of breath and coughing. ASSESSMENT AND PLAN: COVID positive pneumonia, hypoxia, NIDDM. NUTRITION DIAGNOSIS: Altered nutrition related lab values diabetes as evidenced by A1C 11.9, Uglu 4+, elev BG (210-271). CURRENT DIET:YaKlassO MED / puree PO DIET RECOMMENDATIONS: YaKlassO LOW + DOUBLE PROTEIN PORTIONS Leatha Soliman, RD Date: 03/09/20 08:36 Type: Nutrition Notes Clinical Finding Show: LABORATORY DATA: WBC of 5.1, hemoglobin 15.2, platelets 266. Sodium 133, potassium 4.3, BUN 9, creatinine 0.7, glucose of 234. BMI: 32.5kg/m2 LAB (03/05) : Chem: Albumin 2.5 [3.4-5.0], Calcium lv. 8.4 Please select the most appropriate option: [] Protein/Calorie Malnutrition [] Mild [] Moderate [] Severe [] Other [] Unable to determine [] Not Applicable Present on Admission: [] Yes [] No [] Clinically Undetermined Physician signature Date Please also document in your Progress Notes and/or Discharge Summary and indicate if the condition was present on admission. MTDD
--- NOTE | 2020-03-15 15:56 | Discharge Summary ---
Discharge Summary Discharge Summary _ DATE OF ADMISSION: 03/05/2020 DATE OF DISCHARGE: 03/14/2020 DISCHARGED BY: Dr. Arauz REASON FOR ADMISSION: 50 years old male with past medical history of diabetes mellitus, hypertension, presented to emergency department for evaluation Patient reported being sick for the last 8 days. He reported shortness of breath , which got significantly worse over the last 24 to 48 hours. Patient reported generalized body pain. Patient reported dry intermittent cough and shortness of breath. He reported intermittent fever. He denied vomiting and diarrhea. No abdominal pain. No chest pain. Patient reported not eating for for the last 2 days. Upon evaluation patient was hypoxic, tachypneic and with mild tachycardia. Laboratory work-up revealed no leukocytosis , stable hemoglobin, hematocrit Rapid COVID-19 was positive. D-dimer 0.86 , ferritin 961, LDH 365 , CRP 17.3. Lactic acid 1.7. Stable electrolytes and renal parameters. Stable LFT. Troponin negative, pro BNP 125 . EKG revealed sinus tachycardia , no acute ischemic changes . Chest x-ray revealed bilateral infiltrates. In emergency department patient received IV steroids ,empiric antibiotic ,antitussive , Lovenox, 1 L of fluid and admitted for further management. CONSULTANTS: architecture intern Dr. Middleton pulmonary Dr Sharp stripper and opaquer apprentice Dr Pavon ID specialist Dr. Kev Bailon GI specialist Dr Orr HOSPITAL COURSE: Patient admitted to isolation room to medical surgical floor. Supplemental oxygen provided and titrated to keep pulse oximetry above 92% Albuterol MDI was on board as needed. DVT prophylaxis with Lovenox provided. Patient received 5 days of steroids which were later discontinued since patient was at that time on room air. Serial troponin were negative. Echocardiogram revealed preserved ejection fraction 55%. Shortness of breath was due to Covid pneumonia. Blood pressure was closely monitored and remained stable without any antihypertensive medications. Patient demonstrated hyperglycemia. Grinder Operator Automatic seen and evaluated patient. Anti-glycemic regimen optimized as per stripper and opaquer apprentice. Hemoglobin A1c 11.9 clearly not at goal. Patient was on long-acting Levemir, Metformin, Actos, and Januvia continued. Sliding scale of insulin was on board as needed. Diabetic diet and diabetic teaching provided. Patient was encouraged to comply with diet and medications upon discharge. Patient developed diarrhea , presumptively due to Covid infection, which resolved along with , abdominal pain Oral fluids were pushed. Patient was able to tolerate diet. Antiemetic were on board as needed Patient clinically stabilized and was ready for discharge home. Continue isolation for total of 10 days from the initial positive testing. FINAL DIAGNOSES: COVID-19 pneumonia Hypoxemia Diabetes mellitus [id number] /hemoglobin A1c 11.9 History of hypertension DISCHARGE MEDICATIONS: See Medication Reconciliation list. DISCHARGE INSTRUCTIONS: Patient was discharged home Continue isolation for total of 10days from the date of of positive testing I have been assigned to dictate discharge summary for this account. I was not involved in the patient's management. Anna Rasmussen NP Mar 15, 2020 15:56
--- NOTE | 2020-03-17 02:30 | Cardiology Report ---
APPROVED REPORT EKG Measurement Heart [id number] PA 156P42 [id number] <Conclusion> Normal sinus rhythm Normal ECG
--- NOTE | 2020-03-17 02:33 | Cardiology Report ---
APPROVED REPORT EKG Measurement Heart [id number] ME 156P42 [id number] <Conclusion> Normal sinus rhythm Normal ECG
== END 2020-03-14 12:36 | disposition home or self-care (01) | DRG 137 ==
LOC: EDBD 19:53 → EMR 20:05 → 4E 21:10 → EDBEDREQ 22:28
DX: U07.1 COVID-19 (principal); J12.82 Pneumonia due to coronavirus disease 2019; R09.02 Hypoxemia; E11.65 Type 2 diabetes mellitus with hyperglycemia; I10 Essential (primary) hypertension; Z79.4 Long term (current) use of insulin
CPT/HCPCS: 36415; 71045; 80048; 80053; 81003; 82550; 82728; 82962; 83036; 83605; 83615; 83690; 83880; 84484; 85025; 85379; 85610; 85730; 86140; 87040; 93005; 93306; 96361; 96365; 96367; 96375; 99285; J1815; J7030; S5561; U0002